=== PATIENT | female | born 1960 | race African-American/Black ===

== ENCOUNTER 2016-01-29 10:49 | Inpatient (IN) | payer OTHER ==
[2016-01-29 11:13] VITALS: BMI 28.3
--- NOTE | 2016-01-29 12:00 | PDOC ---
History of Present Illness - General Chief Complaint: Weakness Stated Complaint: WEAKNESS Time Seen by Provider: 01/29/16 11:19 History Source: Friend - History of Present Illness Initial Comments: 01/29/16 13:06 Chief complaint: Weakness Patient is a 55-year-old female with a history of stage IV breast cancer to the bones who was brought in by her friend who states she lives with family that she has difficulty walking and she is very weak. Shouldn't is sleeping on the stretcher, wakes up and then goes back to sleep. Cannot get full story from patient. Patient's friend states that patient was told by Dr. Rg come to the ER but they're not sure why. Patient's right side of the face appears more droopy than the left, when asked, friend stated he had never noticed that before , not sure Unable to do full review of systems, patient really not answering questions will open eyes and mumble a few words and go back to sleep. Patient did say that she was at [facility] when asked GENERAL: The patient is very sleepy, awakes with verbal HEAD: Normal with no signs of trauma. EYES: Pupils equal, round and reactive to light, sclera anicteric, conjunctiva clear. ENT: pharynx: no erythema, no exudate, uvula midline NECK: supple CHEST: clear, nontender, rr ABD: soft, nontender EXTREMITIES: No sravanthi-paresis, no edema. NEUROLOGICAL: Sleepy: Follow some instructions, right side of the face seems droopy as compared to the left. Patient does not follow all instructions, but she does lift her arms symmetrically and her legs are weak but she can follow the instructions for moving them, and to plantar flexion and dorsi flexion. SKIN: Warm, Dry Past History - Past Medical History Allergies/Adverse Reactions: Allergies Allergy/AdvReac Type Severity Reaction Status Date / Time No Known Allergies Allergy Verified 01/29/16 11:13 Home Medications: Ambulatory Orders Pregabalin [Lyrica] 50 mg PO BID 12/12/15 Anemia: Yes (SICKLE CELL TRAIT) Asthma: Yes Cancer: Yes (BONE,breast ca, S/P CHEMO TX, MEDIPORT LEFT CHEST) Cardiac Disorders: No CVA: No COPD: No CHF: No Dementia: No Diabetes: No GI Disorders: No Disorders: No HTN: No Hypercholesterolemia: No Kidney Stones: No Liver Disease: Yes (HEP B) Suicide Attempt (Hx): No Seizures: No Thyroid Disease: No - Surgical History Abdominal Surgery: No Appendectomy: No Cardiac Surgery: No Cholecystectomy: No Lung Surgery: No Neurologic Surgery: No Orthopedic Surgery: Yes (BACK 2014 AT [facility]) - Reproductive History PID: No - Immunization History Immunization Up to Date: Yes - Psycho/Social/Smoking Cessation Hx Anxiety: No Suicidal Ideation: No Smoking Status: No Smoking History: Current every day smoker Have you smoked in the past 12 months: No Number of Cigarettes Smoked Daily: 20 Cigars Per Day: 0 Information on smoking cessation initiated: No 'Breaking Loose' booklet given: 01/01/16 Hx Alcohol Use: No Drug/Substance Use Hx: No Substance Use Type: Alcohol, Heroin, Marijuana Hx Substance Use Treatment: Yes *Physical Exam - Vital Signs Last Vital Signs Temp Pulse Resp BP Pulse Ox 98.1 F 109 H 18 128/78 98 01/29/16 11:08 01/29/16 11:08 01/29/16 11:08 01/29/16 11:08 01/29/16 11:08 Heart Score/ECG Review - ECG Intrepretation Rhythm: Regular Rhythm Comment:: 01/29/16 18:16 Normal sinus rhythm at 88, otherwise normal EKG ED Treatment Course - LABORATORY CBC & Chemistry Diagram: 01/29/16 12:51 01/29/16 12:51 Medical Decision Making - Medical Decision Making 01/29/16 pt with stage 4 breast ca, hx of substance abuse with lethargy and weakness. pt exam as noted in chart. pt will get head ct, labs, utox, alcohol, chest xray, ekg, fluids and be reevaluated. pt has no fever. pt more alert, labs stable awaiting ua, toxicology, head ct shows ?mets, chest xray shows greater opacity. pt will be admitted. Discussed with Faith erickson access *DC/Admit/Observation/Transfer Diagnosis at time of Disposition: Breast cancer metastasized to bone Qualifiers: Laterality: right Qualified Code(s): C50.911 - Malignant neoplasm of unspecified site of right female breast Change in mental status Qualifiers: Altered mental status type: unspecified Qualified Code(s): R41.82 - Altered mental status, unspecified - Discharge Dispostion Admit: Yes
[2016-01-29 13:03] LABS: BASOPHIL 0.5 % (0-2.0); EOSINOPHIL 1.2 % (0-4.5); MCH 24.9 pg (25.7-33.7); MCHC 31.9 g/dl (32.0-36.0); MEAN CELL VOLUME 78.1 fl (80-96); MEAN PLT VOLUME 9.7 fl (7.5-11.1); PLATELET COUNT 258 K/MM3 (134-434); RDW 19.2 % (11.6-15.6); WHITE BLOOD COUNT 5.3 K/mm3 (4.0-10.0)
[2016-01-29 13:30] LABS: ALBUMIN 2.9 g/dl (3.4-5.0); ALK PHOS 112 U/L (45-117); ANION GAP 6 (8-16); BILIRUBIN,TOTAL 0.7 mg/dL (0.2-1.0); CALCIUM 8.4 mg/dL (8.5-10.1); CO2 30 mmol/L (21-32); CREATININE 0.6 mg/dL (0.55-1.02); GLUCOSE,RANDOM 92 mg/dL (74-106); SGOT/AST 55 U/L (15-37); SGPT/ALT 13 U/L (12-78); TOT PROT 6.4 g/dl (6.4-8.2)
[2016-01-29] MEDS ORDERED: SODIUM CHLORIDE 1,000 ML IV STA (15:58)
[2016-01-29 17:24] LABS: URINE APPEARANCE CLEAR; URINE BILIRUBIN NEGATIVE (NEGATIVE); URINE BLOOD NEGATIVE (NEGATIVE); URINE COLOR DKYELLOW; URINE GLUCOSE (UA) NEGATIVE (NEGATIVE); URINE KETONE NEGATIVE (NEGATIVE); URINE LEUK ESTERASE NEGATIVE (NEGATIVE); URINE NITRITE NEGATIVE (NEGATIVE); URINE PROTEIN NEGATIVE (NEGATIVE); URINE UROBILINOGEN 2.0 E.U/dl E.U./dl (0.2-1.0)
[2016-01-29 18:06] LABS: URINE MARIJUANA THC POSITIVE ng/ml (CUTOFF=50)
--- NOTE | 2016-01-29 19:29 | PN ---
Teaching Attending Note Name of Resident: Angela Cordero ATTENDING PHYSICIAN STATEMENT I saw and evaluated the patient. I reviewed the resident's note and discussed the case with the resident. I agree with the resident's findings and plan as documented. SUBJECTIVE: OBJECTIVE: Physical: VS: Vital Signs Period Temp Pulse Resp BP Sys/Maciel Pulse Ox Last 24 Hr 98.1 F 84-109 18-18 113-128/69-78 98-98 GEN: HEENT: CARD: RESP: ABD: EXT: CBCD WBC 5.3 K/mm3 (4.0-10.0) 01/29/16 12:51 RBC 4.96 M/mm3 (3.60-5.2) 01/29/16 12:51 Hgb 12.4 GM/dL (10.7-15.3) 01/29/16 12:51 Hct 38.7 % (32.4-45.2) 01/29/16 12:51 MCV 78.1 fl (80-96) L 01/29/16 12:51 MCHC 31.9 g/dl (32.0-36.0) L 01/29/16 12:51 RDW 19.2 % (11.6-15.6) H 01/29/16 12:51 Plt Count 258 K/MM3 (134-434) 01/29/16 12:51 MPV 9.7 fl (7.5-11.1) 01/29/16 12:51 CMP Sodium 135 mmol/L (136-145) L 01/29/16 12:51 Potassium 3.7 mmol/L (3.5-5.1) 01/29/16 12:51 Chloride 99 mmol/L (98-107) 01/29/16 12:51 Carbon Dioxide 30 mmol/L (21-32) 01/29/16 12:51 Anion Gap 6 (8-16) L 01/29/16 12:51 BUN 8 mg/dL (7-18) D 01/29/16 12:51 Creatinine 0.6 mg/dL (0.55-1.02) 01/29/16 12:51 Creat Clearance w eGFR > 60 (>60) 01/29/16 12:51 Random Glucose 92 mg/dL (74-106) 01/29/16 12:51 Calcium 8.4 mg/dL (8.5-10.1) L 01/29/16 12:51 Total Bilirubin 0.7 mg/dL (0.2-1.0) 01/29/16 12:51 AST 55 U/L (15-37) H D 01/29/16 12:51 ALT 13 U/L (12-78) 01/29/16 12:51 Alkaline Phosphatase 112 U/L (45-117) 01/29/16 12:51 Total Protein 6.4 g/dl (6.4-8.2) 01/29/16 12:51 Albumin 2.9 g/dl (3.4-5.0) L 01/29/16 12:51 ASSESSMENT AND PLAN:
--- NOTE | 2016-01-29 19:36 | PN ---
<Guilherme Nevarezjonny - Last Filed: 01/29/16 19:35> Teaching Attending Note Name of Resident: Angela Cordero ATTENDING PHYSICIAN STATEMENT I saw and evaluated the patient. I reviewed the resident's note and discussed the case with the resident. I agree with the resident's findings and plan as documented. SUBJECTIVE: OBJECTIVE: Physical: VS: ASSESSMENT AND PLAN: <Shereen Mari - Last Filed: 01/29/16 21:09> Teaching Attending Note ATTENDING PHYSICIAN STATEMENT I saw and evaluated the patient. I reviewed the resident's note and discussed the case with the resident. I agree with the resident's findings and plan as documented. SUBJECTIVE: Patient is a 55 year old female with past significant sickle cell trait, asthma , hep B, metastatic stage 4 breast cancer on chemo and polysubstance abuse presents with weakness. Could not obtain full history from the patient. OBJECTIVE: Physical: VS: Last Vital Signs Temp Pulse Resp BP Pulse Ox 97.2 F L 78 21 129/63 98 01/29/16 19:31 01/29/16 19:31 01/29/16 19:31 01/29/16 19:31 01/29/16 18:38 GEN: A&O x2, cachectic, resting in bed, able to speak full sentences HEENT: NCAT pupils pinpoint, throat clear without erythema or exudates CARD: RRR, S1S2 RESP: CTAB ABD: BWS x4, non tender EXT: neg CCE LABS: CBCD WBC 5.3 K/mm3 (4.0-10.0) 01/29/16 12:51 RBC 4.96 M/mm3 (3.60-5.2) 01/29/16 12:51 Hgb 12.4 GM/dL (10.7-15.3) 01/29/16 12:51 Hct 38.7 % (32.4-45.2) 01/29/16 12:51 MCV 78.1 fl (80-96) L 01/29/16 12:51 MCHC 31.9 g/dl (32.0-36.0) L 01/29/16 12:51 RDW 19.2 % (11.6-15.6) H 01/29/16 12:51 Plt Count 258 K/MM3 (134-434) 01/29/16 12:51 MPV 9.7 fl (7.5-11.1) 01/29/16 12:51 CMP Sodium 135 mmol/L (136-145) L 01/29/16 12:51 Potassium 3.7 mmol/L (3.5-5.1) 01/29/16 12:51 Chloride 99 mmol/L (98-107) 01/29/16 12:51 Carbon Dioxide 30 mmol/L (21-32) 01/29/16 12:51 Anion Gap 6 (8-16) L 01/29/16 12:51 BUN 8 mg/dL (7-18) D 01/29/16 12:51 Creatinine 0.6 mg/dL (0.55-1.02) 01/29/16 12:51 Creat Clearance w eGFR > 60 (>60) 01/29/16 12:51 Calcium 8.4 mg/dL (8.5-10.1) L 01/29/16 12:51 Total Bilirubin 0.7 mg/dL (0.2-1.0) 01/29/16 12:51 AST 55 U/L (15-37) H D 01/29/16 12:51 ALT 13 U/L (12-78) 01/29/16 12:51 Alkaline Phosphatase 112 U/L (45-117) 01/29/16 12:51 Total Protein 6.4 g/dl (6.4-8.2) 01/29/16 12:51 Albumin 2.9 g/dl (3.4-5.0) L 01/29/16 12:[address]: IMPRESSION: New areas of subcortical decreased density without significant mass effect. Further imaging with contrast enhanced CT or MR is suggested. CRX: IMPRESSION: Interval increase opacity in the left the upper lobe, suprahilar region for which correlation with CT scan of the chest is needed for better comparison to prior CT scan of the chest dated 12/13/2015 ASSESSMENT AND PLAN: Patient is a 55 year old female with past significant sickle cell trait, asthma , hep B, metastatic stage 4 breast cancer on chemo and polysubstance abuse presents with weakness. Head CT found to have possible metastasis to the brain. 1. Weakness - Ddx most likely due to brain metastasis/substance abuse - Possible alcohol intoxication - MRI brain with contrast - No mass effect on CT - Hold off steroids at this time - Check alcohol level - Neuro consult - Neuro surg consult post MRI - Questionable CT chest for left upper lobe subrahilar region when able - PT consult - Check ammonia level 2. Stage 4 breast ca with metastasis - Oncology consult 3. Polysubstance abuse - Detox consult - Librium for possible alcohol withdrawal - CWIA Admit to Med Surg. Documentation prepared by Shereen Mari, acting as senior medical director for Steff Nevarez D.O.
--- NOTE | 2016-01-29 20:28 | HP ---
CHIEF COMPLAINT: Weakness and pain in the legs. PCP: HISTORY OF PRESENT ILLNESS: 55-year-old female with a significant past medical history of stage 4 breast cancer with metastases to bone, s/p right breast mastectomy, polysubstance abuse (opiates, benzodiazepines, alcohol), hepatitis B, sickle cell trait, asthma. She presents to the emergency department with her friend who reports that recently she has been very weak. The Patient is falling asleep during the conversation. She is complaining of pain in lower extremities and numbness in left LE that started a week ago. She denies chest pain, SOB, loss of sensation, dysuria, urgency, frequency, vision changes, difficulty swallowing. The patient was here in the hospital last month and was found to be altered and noted to be intoxicated with narcotics. History is taken from medical records and partially from the patient. ER course was notable for: (1)CT head (2)EKG NSR (3)Chest x ray PAST MEDICAL HISTORY: stage 4 breast cancer with metastases to bone, s/p right breast mastectomy, polysubstance abuse (opiates, alcohol), hepatitis B, sickle cell trait, asthma PAST SURGICAL HISTORY: Orthopedic surgery 2014 Social History: Smoking: Yes 6-10 cigarettes/day Alcohol: N/A Drugs: Polysubstance abuse Family History: Mother of Breast CA , Father CVA Allergies No Known Allergies Allergy (Verified 01/29/16 11:13) pt is poor historian HOME MEDICATIONS: Medication Instructions Recorded Pregabalin [Lyrica] 50 mg PO BID 12/12/15 REVIEW OF SYSTEMS;limited, pt is a poor historian and drowsy CONSTITUTIONAL: generalized weakness Absent: fever, chills, diaphoresis,, malaise, loss of appetite, weight change HEENT: Absent: rhinorrhea, nasal congestion, throat pain, throat swelling, difficulty swallowing, ear pain, eye pain, visual changes CARDIOVASCULAR: Absent: chest pain, syncope, palpitations, irregular heart rate, lightheadedness , peripheral edema RESPIRATORY: Absent: cough, shortness of breath, dyspnea with exertion, orthopnea, wheezing, stridor, hemoptysis GASTROINTESTINAL: Absent: abdominal pain, abdominal distension, nausea, vomiting, diarrhea, constipation, melena, hematochezia GENITOURINARY: Absent: dysuria, frequency, urgency, hesitancy, hematuria, flank pain, genital pain MUSCULOSKELETAL: Absent: myalgia, arthralgia, joint swelling, back pain, neck pain SKIN: Absent: rash, itching, pallor HEMATOLOGIC/IMMUNOLOGIC: Absent: easy bleeding, easy bruising, lymphadenopathy, frequent infections ENDOCRINE: Absent: unexplained weight gain, unexplained weight loss, heat intolerance, cold intolerance NEUROLOGIC: numbness in left LE Absent: headache, focal weakness or paresthesias, dizziness, unsteady gait, seizure, bladder or bowel incontinence PHYSICAL EXAMINATION Vital Signs - 24 hr 01/29/16 01/29/16 18:38 19:31 Temperature 97.2 F L Pulse Rate 78 Pulse Rate [ 84 Apical] Respiratory 18 21 Rate Blood Pressure 129/63 Blood Pressure 113/69 [Left Arm] O2 Sat by Pulse 98 Oximetry (%) GENERAL: Awake, altered mental status HEAD: Normal with no signs of trauma. EYES: Pupils equal, round and reactive to light, extraocular movements intact, sclera anicteric, conjunctiva clear. No lid lag. EARS, NOSE, THROAT: Ears normal, nares patent, oropharynx clear without exudates. Moist mucous membranes. NECK: Normal range of motion, supple without lymphadenopathy, JVD, or masses. LUNGS: Breath sounds equal, clear to auscultation bilaterally. No wheezes, and no crackles. No accessory muscle use. HEART: Regular rate and rhythm, normal S1 and S2 without murmur, rub or gallop. ABDOMEN: Soft, nontender, not distended, normoactive bowel sounds, no guarding, no rebound, no masses. No hepatomegaly or splenomegaly. MUSCULOSKELETAL: Normal range of motion at all joints. No bony deformities or tenderness. No CVA tenderness. UPPER EXTREMITIES: 2+ pulses, warm, well-perfused. No cyanosis. No clubbing. Cap refill <2 seconds. No peripheral edema. LOWER EXTREMITIES: 2+ pulses, warm, well-perfused. No calf tenderness. No peripheral edema. NEUROLOGICAL: Weakness on left side of the face, decreased sensation in LLE, slurred speech, generalized weakness in all 4 extremities. Gait not observed. PSYCHIATRIC: Not cooperative. Drowsy. Good eye contact. Appropriate mood and affect. SKIN: Warm, dry, normal turgor, no rashes or lesions noted. Chest X ray: Increased opacity in left upper lobe, suprahilar region, CT correlation needed. CT Head: New areas of subcortical decreased density without significant mass effect. Further imaging with contrast enhanced CT or MR is suggested. ASSESSMENT/PLAN: 55-year-old female with a significant past medical history of stage 4 breast cancer with metastases to bone, s/p right breast mastectomy, polysubstance abuse (opiates, alcohol), hepatitis B, sickle cell trait, asthma. She is admitted for weakness, possible mets to the brain. Generalized weakness: -CT head is negative for mass effect f/u MRI with contrast -Urine tox. positive for opiates, benzo, marijuana, -Detox consultation -f/u Neurology consultation, Neurosurgery consultation post MRI -hold off steroids at this time - Check ammonia level Polysubstance abuse: -U tox positive -f/u alcohol tox -Pt has altered mental status Stage 4 breast cancer with mets to bone: -unknown disease progression -resume pain meds in AM Asthma: -not on medications DVT prophylaxis: -SCDs boots F/E/N: No/No changes/Regular diet Disposition: The pt is admitted to med surg Problem List - Problem (1) Change in mental status Code(s): R41.82 - ALTERED MENTAL STATUS, UNSPECIFIED Qualifiers: Altered mental status type: unspecified Qualified Code(s): R41.82 - Altered mental status, unspecified (2) Breast cancer metastasized to bone Code(s): C50.919 - MALIGNANT NEOPLASM OF UNSP SITE OF UNSPECIFIED FEMALE BREAST C79.51 - SECONDARY MALIGNANT NEOPLASM OF BONE Qualifiers: Laterality: right Qualified Code(s): C50.911 - Malignant neoplasm of unspecified site of right female breast; C79.51 - Secondary malignant neoplasm of bone (3) Cocaine dependence Code(s): F14.20 - COCAINE DEPENDENCE, UNCOMPLICATED (4) Drug-induced mood disorder Code(s): F19.94 - OTH PSYCHOACTIVE SUBSTANCE USE, UNSP W MOOD DISORDER Visit type - Emergency Visit Emergency Visit: Yes ED Registration Date: 01/29/16 Care time: The patient presented to the Emergency Department on the above date and was hospitalized for further evaluation of their emergent condition. - New Patient This patient is new to me today: No - Critical Care Critical Care patient: No
[2016-01-30 07:31] LABS: MCH 24.7 pg (25.7-33.7); MCHC 32.2 g/dl (32.0-36.0); MEAN CELL VOLUME 76.6 fl (80-96); MEAN PLT VOLUME 9.8 fl (7.5-11.1); PLATELET COUNT 256 K/MM3 (134-434); RDW 18.9 % (11.6-15.6); WHITE BLOOD COUNT 4.3 K/mm3 (4.0-10.0)
[2016-01-30 08:07] LABS: CREATININE 0.5 mg/dL (0.55-1.02)
[2016-01-30] MEDS: oxyCODONE HCL 5 MG TABLET PO PRN (08:41)
--- NOTE | 2016-01-30 09:26 | PN ---
Physical Exam: SUBJECTIVE: Patient seen and examined. She complains of pain everywhere. OBJECTIVE: Vital Signs Period Temp Pulse Resp BP Sys/Maciel Pulse Ox Last 24 Hr 97.8 F-98.4 F 83-96 16-18 100-109/50-68 99-99 GENERAL: The patient is awake, alert, and confused, in no acute distress. HEAD: Normal with no signs of trauma. NECK: Full range of motion, supple. LUNGS: Breath sounds equal, clear to auscultation bilaterally, no wheezes, no crackles, no accessory muscle use. HEART: Regular rate and rhythm, S1, S2 without murmur, rub or gallop. ABDOMEN: Soft, nontender, nondistended, normoactive bowel sounds, no guarding, no rebound, no hepatosplenomegaly, no masses. EXTREMITIES: 2+ pulses, warm, well-perfused, no edema. Laboratory Results - last 24 hr 01/29/16 01/30/16 01/30/16 21:45 06:30 06:30 WBC 4.3 RBC 4.59 Hgb 11.3 Hct 35.2 MCV 76.6 L MCHC 32.2 RDW 18.9 H Plt Count 256 MPV 9.8 Sodium 136 Potassium 3.6 Chloride 100 Carbon Dioxide 28 Anion Gap 8 BUN 9 Creatinine 0.5 L Random Glucose 87 Calcium 8.0 L Ammonia Alcohol, Quantitative < 5.0 01/30/16 06:30 WBC RBC Hgb Hct MCV MCHC RDW Plt Count MPV Sodium Potassium Chloride Carbon Dioxide Anion Gap BUN Creatinine Random Glucose Calcium Ammonia 22.93 Alcohol, Quantitative Active Medications Generic Name Dose Route Start Last Admin Trade Name Freq PRN Reason Stop Dose Admin Oxycodone HCl 10 mg 01/30/16 08:28 01/30/16 08:41 Roxicodone - PO 10 mg Q4H PRN Administration PAIN Pregabalin 50 mg 01/30/16 10:00 Lyrica - PO 01/31/16 09:59 BID MARGARITA ASSESSMENT/PLAN: This is a 55-year-old woman with a history of stage 4 breast cancer with bone metastases, right mastectomy, opiate and alcohol abuse, hepatitis B, sickle cell trait and asthma who presented with weakness and was found to have possible brain metastases on head CT. 1. Generalized weakness - Head CT shows multiple hypodense areas without mass effect - MRI of brain ordered 2. Stage 4 breast cancer with bone and possible brain metastases - Continue Lyrica, oxycodone as needed - Morphine as needed for severe pain - MRI of brain to evaluate for metastases - Will hold steroids pending MRI as there is no mass effect seen on CT - Palliative care consult 3. Asthma - Stable 4. Polysubstance abuse Visit type - Emergency Visit Emergency Visit: Yes ED Registration Date: 01/29/16 Care time: The patient presented to the Emergency Department on the above date and was hospitalized for further evaluation of their emergent condition. - New Patient This patient is new to me today: Yes Date on this admission: 01/30/16 - Critical Care Critical Care patient: No - Discharge Referral Referred to [facility] Med P.C.: No
[2016-01-30] MEDS: morphine CARPU-JECT 2 MG/1 ML DISP.SYRIN IVPUSH PRN (09:49)
[2016-01-30] MEDS: PREGABALIN 25 MG CAPSULE PO SCH ×2 (10:36→21:51)
--- NOTE | 2016-01-30 10:58 | CONSULT ---
Consult Consult Specialty:: Neurology Reason for Consultation:: Brain metastasis - History of Present Illness History of Present Illness: 55-year-old woman with past medical history of stage 4 breast cancer with metastases to bone, s/p right breast mastectomy, polysubstance abuse (opiates, benzodiazepines, alcohol), hepatitis B, sickle cell trait, asthma, brought in by friend yesterday for "pain all over her body" and left sided numbness starting one week ago. As per records, patient was here in the hospital last month and was found to be altered and noted to be intoxicated with narcotics. History is taken from medical records and partially from the patient. CT head was completed which shows new areas of subcortical decreased density without significant mass effect. Neurology called to evaluate possible brain metastasis. - History Source Limitations to Obtaining History: No Limitations - Past Medical History ...LMP: 09/20/11 - Smoking History Smoking history: Current every day smoker Have you smoked in the past 12 months: No Aproximately how many cigarettes per day: 20 Home Medications - Allergies Allergies/Adverse Reactions: Allergies Allergy/AdvReac Type Severity Reaction Status Date / Time No Known Allergies Allergy Verified 01/29/16 11:13 - Home Medications Home Medications: Ambulatory Orders Pregabalin [Lyrica] 50 mg PO BID 12/12/15 Family Disease History - Family Disease History Family Disease History: Heart Disease: Father, CA: Mother (breast ), Other: Sister (addiction, HIV) Review of Systems - Review of Systems Constitutional: reports: No Symptoms Eyes: reports: No Symptoms HENT: reports: No Symptoms Neck: reports: No Symptoms Cardiovascular: reports: No Symptoms Respiratory: reports: No Symptoms Gastrointestinal: reports: No Symptoms Neurological: reports: Parasthesia Physical Exam Vital Signs: Vital Signs Temperature 98 F 01/30/16 08:13 Pulse Rate 96 H 01/30/16 08:13 Respiratory Rate 18 01/30/16 08:13 Blood Pressure 101/50 01/30/16 08:13 O2 Sat by Pulse Oximetry (%) 99 01/29/16 22:00 Constitutional: Yes: Well Nourished Eyes: Yes: WNL HENT: Yes: WNL Cardiovascular: Yes: S1, S2 Respiratory: Yes: Regular Neurological: Yes: Other (Mental status: knows name, month, age, tangential at times CNII-XII Mild left facial numbness, EOMI, visual galdamez full, tongue midline Motor 5/5 throughout no drift Sensory decrease to light touch left face , arm, leg) Labs: CBC, BMP 01/30/16 06:30 01/30/16 06:30 Imaging - Results Cat Scan: Other (CT head new areas of subcortical decreased density without significant mass effect) Assessment/Plan 55-year-old woman with past medical history of stage 4 breast cancer with metastases to bone, s/p right breast mastectomy, polysubstance abuse (opiates, benzodiazepines, alcohol), hepatitis B, sickle cell trait, asthma, brought in by friend yesterday for "pain all over her body" and left sided numbness starting one week ago. As per records, patient was here in the hospital last month and was found to be altered and noted to be intoxicated with narcotics. CT head was completed which shows new areas of subcortical decreased density without significant mass effect. Neurology called to evaluate possible brain metastasis. Impression Possible brain metastasis MRI brain with and without contrast Can hold off on steroids until further delineation with MRI, given mild sensory symptoms and no midline shift Depending on extent of mets, will require neurosurgery and/or radiation oncology Continue supportive care
[2016-01-30] MEDS ORDERED: HALOPERIDOL LACTATE 5 MG/ML IM ONE (11:04)
--- NOTE | 2016-01-30 12:41 | EKG ---
Test Reason : Blood Pressure : / mmHG Vent. Rate : 088 BPM Atrial Rate : 088 BPM P-R Int : 150 ms QRS Dur : 084 ms QT Int : 390 ms P-R-T Axes : 074 023 051 degrees QTc Int : 471 ms NORMAL SINUS RHYTHM LOW VOLTAGE QRS BORDERLINE ECG WHEN COMPARED WITH ECG OF 04-JAN-2016 14:59, NO SIGNIFICANT CHANGE WAS FOUND Confirmed by NUBIA COULTER MD ([id number]) on 01/30/2016 12:41:18 PM Referred By: Overread By: NUBIA COULTER MD
[2016-01-30] MEDS ORDERED: METHADONE HCL 10 MG TABLET (FOR DETOX USE ONLY) PO ONE (14:11)
--- NOTE | 2016-01-30 14:18 | CONSULT ---
Consult Detox [facility] Reason for Current Admission/Consult: HEROIN DETOX Referred by:: CAROLINE ALEJO RES - History History of Present Illness: PT. KNOWN TO ME FROM PREVIOUS ADMISSIONS & OTP.SHE'S STILL USING HEROIN & C/O WITHDRAWAL SX. - History Source History Provided By: Patient, Medical Record Limitations to Obtaining History: No Limitations - Alcohol/Substance Use Hx Alcohol Use: No - Current Drug/Alcohol Use Heroin Route: Inhalation Frequency: Daily Amount used: 5 BAGS Age of first use: 27 Date of Last Use: 01/28/16 - Past Medical History ...LMP: 09/20/11 ...: No - Significant Medical Findings: Laboratory Last Values WBC 4.3 K/mm3 (4.0-10.0) 01/30/16 06:30 RBC 4.59 M/mm3 (3.60-5.2) 01/30/16 06:30 Hgb 11.3 GM/dL (10.7-15.3) 01/30/16 06:30 Hct 35.2 % (32.4-45.2) 01/30/16 06:30 MCV 76.6 fl (80-96) L 01/30/16 06:30 MCHC 32.2 g/dl (32.0-36.0) 01/30/16 06:30 RDW 18.9 % (11.6-15.6) H 01/30/16 06:30 Plt Count 256 K/MM3 (134-434) 01/30/16 06:30 MPV 9.8 fl (7.5-11.1) 01/30/16 06:30 Neutrophils % 79.0 % (42.8-82.8) 01/29/16 12:51 Lymphocytes % 8.2 % (8-40) D 01/29/16 12:51 Monocytes % 11.1 % (3.8-10.2) H 01/29/16 12:51 Eosinophils % 1.2 % (0-4.5) D 01/29/16 12:51 Basophils % 0.5 % (0-2.0) 01/29/16 12:51 Sodium 136 mmol/L (136-145) 01/30/16 06:30 Potassium 3.6 mmol/L (3.5-5.1) 01/30/16 06:30 Chloride 100 mmol/L (98-107) 01/30/16 06:30 Carbon Dioxide 28 mmol/L (21-32) 01/30/16 06:30 Anion Gap 8 (8-16) 01/30/16 06:30 BUN 9 mg/dL (7-18) 01/30/16 06:30 Creatinine 0.5 mg/dL (0.55-1.02) L 01/30/16 06:30 Creat Clearance w eGFR > 60 (>60) 01/29/16 12:51 Random Glucose 87 mg/dL (74-106) 01/30/16 06:30 Calcium 8.0 mg/dL (8.5-10.1) L 01/30/16 06:30 Total Bilirubin 0.7 mg/dL (0.2-1.0) 01/29/16 12:51 AST 55 U/L (15-37) H D 01/29/16 12:51 ALT 13 U/L (12-78) 01/29/16 12:51 Alkaline Phosphatase 112 U/L (45-117) 01/29/16 12:51 Ammonia 22.93 umol/L (11-32) 01/30/16 06:30 Total Protein 6.4 g/dl (6.4-8.2) 01/29/16 12:51 Albumin 2.9 g/dl (3.4-5.0) L 01/29/16 12:51 Urine Color Dkyellow 01/29/16 17:00 Urine Appearance Clear 01/29/16 17:00 Urine pH 5.0 (5.0-8.0) 01/29/16 17:00 Ur Specific Dowling 1.016 (1.001-1.035) 01/29/16 17:00 Urine Protein Negative (NEGATIVE) 01/29/16 17:00 Urine Glucose (UA) Negative (NEGATIVE) 01/29/16 17:00 Urine Ketones Negative (NEGATIVE) 01/29/16 17:00 Urine Blood Negative (NEGATIVE) 01/29/16 17:00 Urine Nitrite Negative (NEGATIVE) 01/29/16 17:00 Urine Bilirubin Negative (NEGATIVE) 01/29/16 17:00 Urine Urobilinogen 2.0 e.u/dl E.U./dl (0.2-1.0) H 01/29/16 17:00 Ur Leukocyte Esterase Negative (NEGATIVE) 01/29/16 17:00 Opiates Screen Positive ng/ml (GQTKBY=778) 01/29/16 17:00 Methadone Screen Negative ng/ml (AWKHGD=178) 01/29/16 17:00 Barbiturate Screen Negative ng/ml (ZAMXAU=395) 01/29/16 17:00 Phencyclidine Screen Negative ng/ml (CUTOFF=25) 01/29/16 17:00 Ur Amphetamines Screen Positive ng/ml (FEUGGX=552) 01/29/16 17:00 MDMA (Ecstasy) Screen Negative ng/ml (ZGFHME=141) 01/29/16 17:00 Benzodiazepines Screen Positive ng/ml (IXQSPN=712) 01/29/16 17:00 Cocaine Screen Negative ng/ml (ZJXKZW=466) 01/29/16 17:00 U Marijuana (THC) Screen Positive ng/ml (CUTOFF=50) 01/29/16 17:00 Alcohol, Quantitative < 5.0 mg/dl (0-5) 01/29/16 21:45 LABS NOTED COWS - Scale Resting Pulse: 1= [place] 81-100 Sweatin=Flushed/Facial Moisture Restless Observation: 1= Difficult to Sit Still Pupil Size: 1= Pupils >than Normal Bone or Joint Aches: 2= Severe Diffuse Aches Runny Nose/ Eye Tearin= Runny Nose/Eyes GI Upset > 30mins: 2= Nausea/Diarrhea Tremor Observation: 2= Slight Tremor Visible Yawning Observation: 1= 1-2x During Session Anxiety or Irritability: 2=Irritable/Anxious Goose Flesh Skin: 0=Smooth Skin COWS Score: 16 Assessment Plan - Diagnosis (1) Opioid dependence with withdrawal Status: Acute - Medication Detox Regimen/Protocol: Methadone
[2016-01-30] MEDS ORDERED: METHADONE HCL 10 MG TABLET PO ONE ×2 (15:00→23:00)
[2016-01-31] MEDS: diazePAM 5 MG TABLET PO PRN (04:24)
[2016-01-31] MEDS ORDERED: LORAZEPAM CARPU-JECT 2 MG/ML DISP.SYRIN IVPUSH ONE ×2 (05:36→08:07)
--- NOTE | 2016-01-31 07:41 | PN ---
Physical Exam: SUBJECTIVE: Patient seen and examined. She continues to complain of pain all over. OBJECTIVE: Vital Signs Period Temp Pulse Resp BP Sys/Maciel Pulse Ox Last 24 Hr 98 F-98.2 F 70-106 18-20 98-142/50-81 97 GENERAL: The patient is awake, alert, and confused, in no acute distress. HEAD: Normal with no signs of trauma. NECK: Full range of motion, supple. LUNGS: Breath sounds equal, clear to auscultation bilaterally, no wheezes, no crackles, no accessory muscle use. HEART: Regular rate and rhythm, S1, S2 without murmur, rub or gallop. ABDOMEN: Soft, nontender, nondistended, normoactive bowel sounds, no guarding, no rebound, no hepatosplenomegaly, no masses. EXTREMITIES: 2+ pulses, warm, well-perfused, no edema. Laboratory Results - last 24 hr 01/30/16 01/30/16 06:30 06:30 Sodium 136 Potassium 3.6 Chloride 100 Carbon Dioxide 28 Anion Gap 8 BUN 9 Creatinine 0.5 L Random Glucose 87 Calcium 8.0 L Ammonia 22.93 Active Medications Generic Name Dose Route Start Last Admin Trade Name Freq PRN Reason Stop Dose Admin Diazepam 10 mg 01/30/16 14:11 01/31/16 04:24 Valium - PO 02/02/16 14:10 10 mg Q4H PRN Administration WITHDRAWAL(CONT SUBST) Methadone HCl 20 mg 01/31/16 10:00 Dolophine - PO 01/31/16 10:01 ONCE ONE Methadone HCl 10 mg 02/03/16 10:00 Dolophine - PO 02/03/16 10:01 ONCE ONE Methadone HCl 15 mg 02/01/16 10:00 Dolophine - PO 02/01/16 23:59 ONCE ONE Methadone HCl 15 mg 02/02/16 10:00 Dolophine - PO 02/02/16 23:59 ONCE ONE Methadone HCl 5 mg 02/04/16 06:00 Dolophine - PO 02/04/16 06:01 ONCE@0600 ONE Morphine Sulfate 1 mg 01/30/16 09:27 01/30/16 09:49 Morphine Injection - IVPUSH 1 mg Q3H PRN Administration SEVERE PAIN Oxycodone HCl 10 mg 01/30/16 08:28 01/30/16 08:41 Roxicodone - PO 10 mg Q4H PRN Administration PAIN Pregabalin 50 mg 01/30/16 10:00 01/30/16 21:51 Lyrica - PO 01/31/16 09:59 50 mg BID MARGARITA Administration ASSESSMENT/PLAN: This is a 55-year-old woman with a history of stage 4 breast cancer with bone metastases, right mastectomy, opiate and alcohol abuse, hepatitis B, sickle cell trait and asthma who presented with weakness and was found to have possible brain metastases on head CT. 1. Generalized weakness - Head CT shows multiple hypodense areas without mass effect - MRI of brain ordered 2. Stage 4 breast cancer with bone and possible brain metastases - Continue Lyrica - MRI of brain to evaluate for metastases - Will hold steroids pending MRI as there is no mass effect seen on CT - Palliative care consult 3. Asthma - Stable 4. Opioid dependence - Started on Methadone taper Visit type - Emergency Visit Emergency Visit: Yes ED Registration Date: 01/29/16 Care time: The patient presented to the Emergency Department on the above date and was hospitalized for further evaluation of their emergent condition. - New Patient This patient is new to me today: No - Critical Care Critical Care patient: No - Discharge Referral Referred to [facility] Med P.C.: No
[2016-01-31] MEDS ORDERED: METHADONE HCL 10 MG TABLET (FOR DETOX USE ONLY) PO ONE (10:00)
[2016-01-31] MEDS ORDERED: METHADONE HCL 10 MG TABLET PO ONE (10:00)
[2016-01-31] MEDS ORDERED: HALOPERIDOL LACTATE 5 MG/ML IM ONE (10:20)
[2016-01-31] MEDS: oxyCODONE HCL 5 MG TABLET PO PRN (11:59)
--- NOTE | 2016-01-31 12:40 | PN ---
Teaching Attending Note ATTENDING PHYSICIAN STATEMENT I saw and evaluated the patient. I reviewed the resident's note and discussed the case with the resident. I agree with the resident's findings and plan as documented. SUBJECTIVE: OBJECTIVE: ASSESSMENT AND PLAN:
[2016-02-01] MEDS: diazePAM 5 MG TABLET PO PRN ×2 (00:58→20:33)
[2016-02-01] MEDS: morphine CARPU-JECT 2 MG/1 ML DISP.SYRIN IVPUSH PRN ×6 (00:58→23:45)
[2016-02-01 08:13] LABS: MCHC 32.6 g/dl (32.0-36.0); MEAN CELL VOLUME 76.5 fl (80-96); MEAN PLT VOLUME 10.2 fl (7.5-11.1); PLATELET COUNT 298 K/MM3 (134-434); RDW 19.2 % (11.6-15.6)
[2016-02-01 09:07] LABS: CALCIUM 9.1 mg/dL (8.5-10.1); CREATININE 0.5 mg/dL (0.55-1.02)
[2016-02-01] MEDS ORDERED: METHADONE HCL 5 MG TABLET PO ONE (10:00)
--- NOTE | 2016-02-01 10:48 | PN ---
Physical Exam: SUBJECTIVE: Patient seen and examined Pt is awake and alert pt follow simple directions Pt complained of lower ext pain and gen weakness Pt deneis chest pain, palpitation, fever, chills, n/v OBJECTIVE: Vital Signs Period Temp Pulse Resp BP Sys/Maciel Pulse Ox Last 24 Hr 97.8 F-99.3 F 84-98 18-20 136-168/84-89 GENERAL: The patient is awake, alert, and oriented, in no acute distress. HEAD: Normal with no signs of trauma. EYES: PERRL, extraocular movements intact, sclera anicteric, conjunctiva clear. No ptosis. ENT: Ears normal, nares patent, oropharynx clear without exudates, moist mucous membranes. No teeth NECK: Trachea midline, full range of motion, supple. LUNGS: Breath sounds equal, diminshed to auscultation bilaterally, no wheezes, no crackles, no accessory muscle use. HEART: Regular rate and rhythm, S1, S2 without murmur, rub or gallop. ABDOMEN: Soft, nontender, nondistended, normoactive bowel sounds, no guarding, no rebound, no hepatosplenomegaly, no masses. EXTREMITIES: 2+ pulses, warm, well-perfused, no edema. NEUROLOGICAL: slow speech, strength 4/5 in all ext. gait not observed. PSYCH: Normal mood, flat affect. confused at times SKIN: Warm, dry, normal turgor, no rashes or lesions noted Laboratory Results - last 24 hr 02/01/16 02/01/16 07:00 07:00 WBC 8.0 D RBC 4.85 Hgb 12.1 Hct 37.1 MCV 76.5 L MCHC 32.6 RDW 19.2 H Plt Count 298 MPV 10.2 Sodium 137 Potassium 3.5 Chloride 100 Carbon Dioxide 25 Anion Gap 12 BUN 9 Creatinine 0.5 L Random Glucose 98 Calcium 9.1 Active Medications Generic Name Dose Route Start Last Admin Trade Name Freq PRN Reason Stop Dose Admin Diazepam 10 mg 01/30/16 14:11 02/01/16 00:58 Valium - PO 02/02/16 14:10 10 mg Q4H PRN Administration WITHDRAWAL(CONT SUBST) Methadone HCl 10 mg 02/03/16 10:00 Dolophine - PO 02/03/16 10:01 ONCE ONE Methadone HCl 15 mg 02/01/16 10:00 Dolophine - PO 02/01/16 23:59 ONCE ONE Methadone HCl 15 mg 02/02/16 10:00 Dolophine - PO 02/02/16 23:59 ONCE ONE Methadone HCl 5 mg 02/04/16 06:00 Dolophine - PO 02/04/16 06:01 ONCE@0600 ONE Morphine Sulfate 1 mg 01/30/16 09:27 02/01/16 10:24 Morphine Injection - IVPUSH 1 mg Q3H PRN Administration SEVERE PAIN Oxycodone HCl 10 mg 01/30/16 08:28 01/31/16 11:59 Roxicodone - PO 10 mg Q4H PRN Administration PAIN CBC, BMP 02/01/16 07:00 02/01/16 07:00 Laboratory Tests 01/29/16 01/29/16 01/30/16 17:00 17:00 06:30 Ammonia 22.93 Urine Nitrite Negative Ur Leukocyte Esterase Negative Opiates Screen Positive Ur Amphetamines Screen Positive Benzodiazepines Screen Positive U Marijuana (THC) Screen Positive CT head 01/29/16: New areas of subcortical decreased density without significant mass effect. Further imaging with contrast enhanced CT or MR is suggested. CXR 01/29/16: Interval increase opacity in the left the upper lobe, suprahilar region for which correlation with CT scan of the chest is needed for better comparison to prior CT scan of the chest dated 12/13/2015 CT chest 12/13/2015 : Abnormal CT scan findings highly suspicious for left upper lobe lung mass with satellite metastatic lesions and possible nodular metastasis to the left adrenal with metastatic bone disease. Correlation with PET CT scan recommended for further evaluation. ASSESSMENT/PLAN: 55 year old female with pmh of Stage 4 breast cancer with bone metastasis, right breast mastectomy, asthma, polysubstance abuse including alcohol and opiate, Hepatitis B presented to the ED with complaint of generalized weakness, pt was found to have new areas on decreased density on head CT Generalized weakness r/o brain mets vs infectious etiology UA negative, no wbc, CXR no acute findings CT head done neurology consulted MRI brain ordered Consider Hem/onc Consider Neurosurgery and radiation oncology post MRI result Metastatic Breast cancer Consider hem Onc consult f/u MRI result Asthma Stable right now Consider Duoneb prn Polysubstance abuse Dr Farah consulted on methadone taper FEN Fluid: none Electrolytes: monitor chemistry Nutrition: regular diet DVT prophylaxis consider heparin sq Dispostion: keep in medsurg Visit type - Emergency Visit Emergency Visit: Yes ED Registration Date: 01/29/16 Care time: The patient presented to the Emergency Department on the above date and was hospitalized for further evaluation of their emergent condition. - New Patient This patient is new to me today: Yes Date on this admission: 02/01/16 - Critical Care Critical Care patient: No
--- NOTE | 2016-02-01 12:38 | PN ---
Teaching Attending Note Name of Resident: Jorge Jolly ATTENDING PHYSICIAN STATEMENT I saw and evaluated the patient. I reviewed the resident's note and discussed the case with the resident. I agree with the resident's findings and plan as documented. SUBJECTIVE: Pt is awake and alert ,c/o having lower ext pain with generalized weakness. Denies chest pain, palpitation, fever, chills, n/v. OBJECTIVE: Vital Signs Temperature 97.9 F 02/01/16 08:00 Pulse Rate 98 H 02/01/16 08:00 Respiratory Rate 20 02/01/16 08:00 Blood Pressure 153/89 02/01/16 08:00 O2 Sat by Pulse Oximetry (%) 99 02/01/16 09:00 GENERAL: The patient is awake, alert, and oriented, in no acute distress. HEAD: Normal with no signs of trauma. EYES: PERRL, extraocular movements intact, sclera anicteric, conjunctiva clear. ENT: Ears normal, oropharynx clear without exudates, moist mucous membranes. No teeth NECK: Trachea midline, full range of motion, supple. LUNGS: Breath sounds equal, diminshed to auscultation bilaterally, no wheezes, no crackles, no accessory muscle use. HEART: Regular rate and rhythm, S1, S2 positive, no rub or gallop. ABDOMEN: Soft, nontender, nondistended, normoactive bowel sounds, no guarding, no rebound, no hepatosplenomegaly, no masses. EXTREMITIES: 2+ pulses, warm, well-perfused, no edema. NEUROLOGICAL: slow speech, strength 4/5 in all ext. gait not observed. PSYCH: Normal mood, flat affect. confused at times SKIN: Warm, dry, normal turgor, no rashes or lesions noted CBCD WBC 8.0 K/mm3 (4.0-10.0) D 02/01/16 07:00 RBC 4.85 M/mm3 (3.60-5.2) 02/01/16 07:00 Hgb 12.1 GM/dL (10.7-15.3) 02/01/16 07:00 Hct 37.1 % (32.4-45.2) 02/01/16 07:00 MCV 76.5 fl (80-96) L 02/01/16 07:00 MCHC 32.6 g/dl (32.0-36.0) 02/01/16 07:00 RDW 19.2 % (11.6-15.6) H 02/01/16 07:00 Plt Count 298 K/MM3 (134-434) 02/01/16 07:00 MPV 10.2 fl (7.5-11.1) 02/01/16 07:00 CMP Sodium 137 mmol/L (136-145) 02/01/16 07:00 Potassium 3.5 mmol/L (3.5-5.1) 02/01/16 07:00 Chloride 100 mmol/L (98-107) 02/01/16 07:00 Carbon Dioxide 25 mmol/L (21-32) 02/01/16 07:00 Anion Gap 12 (8-16) 02/01/16 07:00 BUN 9 mg/dL (7-18) 02/01/16 07:00 Creatinine 0.5 mg/dL (0.55-1.02) L 02/01/16 07:00 Creat Clearance w eGFR > 60 (>60) 01/29/16 12:51 Random Glucose 98 mg/dL (74-106) 02/01/16 07:00 Calcium 9.1 mg/dL (8.5-10.1) 02/01/16 07:00 Total Bilirubin 0.7 mg/dL (0.2-1.0) 01/29/16 12:51 AST 55 U/L (15-37) H D 01/29/16 12:51 ALT 13 U/L (12-78) 01/29/16 12:51 Alkaline Phosphatase 112 U/L (45-117) 01/29/16 12:51 Total Protein 6.4 g/dl (6.4-8.2) 01/29/16 12:51 Albumin 2.9 g/dl (3.4-5.0) L 01/29/16 12:51 Current Medications Generic Name Dose Route Start Last Admin Trade Name Freq PRN Reason Stop Dose Admin Diazepam 10 mg 01/30/16 14:11 02/01/16 00:58 Valium - PO 02/02/16 14:10 10 mg Q4H PRN Administration WITHDRAWAL(CONT SUBST) Methadone HCl 10 mg 02/03/16 10:00 Dolophine - PO 12/28/16 10:01 ONCE ONE Methadone HCl 15 mg 02/01/16 10:00 Dolophine - PO 02/01/16 23:59 ONCE ONE Methadone HCl 15 mg 02/02/16 10:00 Dolophine - PO 02/02/16 23:59 ONCE ONE Methadone HCl 5 mg 02/04/16 06:00 Dolophine - PO 02/04/16 06:01 ONCE@0600 ONE Morphine Sulfate 1 mg 01/30/16 09:27 02/01/16 10:24 Morphine Injection - IVPUSH 1 mg Q3H PRN Administration SEVERE PAIN Oxycodone HCl 10 mg 01/30/16 08:28 01/31/16 11:59 Roxicodone - PO 10 mg Q4H PRN Administration PAIN Medication Instructions Recorded Pregabalin [Lyrica] 50 mg PO BID 12/12/15 Laboratory Tests 01/29/16 17:00 Opiates Screen Positive Ur Amphetamines Screen Positive Benzodiazepines Screen Positive U Marijuana (THC) Screen Positive ASSESSMENT AND PLAN: This is a 55-year-old woman with a history of stage 4 breast cancer with bone metastases, right mastectomy, opiate and alcohol abuse, hepatitis B, sickle cell trait and asthma who presented with weakness and was found to have possible brain metastases on head CT. # Acute Generalized weakness ; Head CT shows multiple hypodense areas without mass effect, MRI of brain ordered pending Urine screen positive for opiates, amphetamines,benzos,marijuna ; Valium for withdrawel as per [facility] consult grp. # Stage 4 breast cancer with bone and possible brain metastases MRI of brain to evaluate for metastases Will hold steroids pending MRI as there is no mass effect seen on CT, Palliative care consult # Asthma Stable # Opioid dependence Started on Methadone taper as per DVT Px: SCds for now
--- NOTE | 2016-02-01 15:24 | EKG ---
Test Reason : Blood Pressure : / mmHG Vent. Rate : 092 BPM Atrial Rate : 092 BPM P-R Int : 146 ms QRS Dur : 098 ms QT Int : 392 ms P-R-T Axes : 070 001 048 degrees QTc Int : 484 ms NORMAL SINUS RHYTHM PROLONGED QT ABNORMAL ECG WHEN COMPARED WITH ECG OF 29-JAN-2016 15:22, NO SIGNIFICANT CHANGE WAS FOUND Confirmed by NUBIA COULTER MD ([id number]) on 02/01/2016 3:24:06 PM Referred By: Maya SHI Overread By: NUBIA COULTER MD
[2016-02-01] MEDS: oxyCODONE HCL 5 MG TABLET PO PRN (22:39)
[2016-02-02] MEDS: diazePAM 5 MG TABLET PO PRN ×4 (01:27→21:46)
[2016-02-02] MEDS: morphine CARPU-JECT 2 MG/1 ML DISP.SYRIN IVPUSH PRN ×2 (05:11→08:23)
--- NOTE | 2016-02-02 09:06 | PN ---
Physical Exam: SUBJECTIVE: Patient seen and examined Pt is awake, alert and oriented to person and place No s/s of acute distress. pt is more awake and alert this morning Pt moves all ext Pt complained of pain all over denies numbness, tingling, focal weakness OBJECTIVE: Vital Signs Period Temp Pulse Resp BP Sys/Maciel Pulse Ox Last 24 Hr 97.2 F-98.4 F 82-97 18-21 152/90 99-99 GENERAL: The patient is awake, alert, and oriented, in no acute distress. HEAD: Normal with no signs of trauma. EYES: PERRL, extraocular movements intact, sclera anicteric, conjunctiva clear. No ptosis. ENT: Ears normal, nares patent, oropharynx clear without exudates, moist mucous membranes. No teeth NECK: Trachea midline, full range of motion, supple. LUNGS: Breath sounds equal, diminished to auscultation bilaterally, no wheezes , no crackles, no accessory muscle use. HEART: Regular rate and rhythm, S1, S2 without murmur, rub or gallop. ABDOMEN: Soft, nontender, nondistended, normoactive bowel sounds, no guarding, no rebound, no hepatosplenomegaly, no masses. EXTREMITIES: 2+ pulses, warm, well-perfused, no edema. NEUROLOGICAL: slow speech, strength 4/5 in all ext. gait not observed. PSYCH: Normal mood, flat affect. confused at times SKIN: Warm, dry, normal turgor, no rashes or lesions noted Laboratory Results - last 24 hr 02/01/16 07:00 Sodium 137 Potassium 3.5 Chloride 100 Carbon Dioxide 25 Anion Gap 12 BUN 9 Creatinine 0.5 L Random Glucose 98 Calcium 9.1 Active Medications Generic Name Dose Route Start Last Admin Trade Name Freq PRN Reason Stop Dose Admin Diazepam 10 mg 01/30/16 14:11 02/02/16 05:11 Valium - PO 02/02/16 14:10 10 mg Q4H PRN Administration WITHDRAWAL(CONT SUBST) Methadone HCl 10 mg 02/03/16 10:00 Dolophine - PO 02/03/16 10:01 ONCE ONE Methadone HCl 15 mg 02/01/16 10:00 Dolophine - PO 02/01/16 23:59 ONCE ONE Methadone HCl 15 mg 02/02/16 10:00 Dolophine - PO 02/02/16 23:59 ONCE ONE Methadone HCl 5 mg 02/04/16 06:00 Dolophine - PO 02/04/16 06:01 ONCE@0600 ONE Morphine Sulfate 1 mg 01/30/16 09:27 02/02/16 08:23 Morphine Injection - IVPUSH 1 mg Q3H PRN Administration SEVERE PAIN Oxycodone HCl 5 mg 02/02/16 08:40 Roxicodone - PO 02/03/16 08:39 Q4H PRN PAIN CBC, BMP 02/01/16 07:00 02/01/16 07:00 CT head 01/29/16: New areas of subcortical decreased density without significant mass effect. Further imaging with contrast enhanced CT or MR is suggested. CXR 01/29/16: Interval increase opacity in the left the upper lobe, suprahilar region for which correlation with CT scan of the chest is needed for better comparison to prior CT scan of the chest dated 12/13/2015 CT chest 12/13/2015 : Abnormal CT scan findings highly suspicious for left upper lobe lung mass with satellite metastatic lesions and possible nodular metastasis to the left adrenal with metastatic bone disease. Correlation with PET CT scan recommended for further evaluation. ASSESSMENT/PLAN: 55 year old female with pmh of Stage 4 breast cancer with bone metastasis, right breast mastectomy, asthma, polysubstance abuse including alcohol and opiate, Hepatitis B presented to the ED with complaint of generalized weakness, pt was found to have new areas on decreased density on head CT Generalized weakness r/o brain mets vs infectious etiology UA negative, no wbc, CXR no acute findings CT head done neurology consulted MRI brain ordered to be done today Consider Hem/onc Consider Neurosurgery and radiation oncology post MRI result Metastatic Breast cancer Consider hem Onc consult f/u MRI result Asthma Stable right now Consider Duoneb prn Polysubstance abuse Dr Farah consulted on methadone taper FEN Fluid: none Electrolytes: monitor chemistry Nutrition: regular diet DVT prophylaxis consider heparin sq Dispostion: keep in medsurg pending MRI results Visit type - Emergency Visit Emergency Visit: Yes ED Registration Date: 01/29/16 Care time: The patient presented to the Emergency Department on the above date and was hospitalized for further evaluation of their emergent condition. - New Patient This patient is new to me today: No - Critical Care Critical Care patient: No
--- NOTE | 2016-02-02 09:44 | PN ---
Teaching Attending Note Name of Resident: Jorge Jolly ATTENDING PHYSICIAN STATEMENT I saw and evaluated the patient. I reviewed the resident's note and discussed the case with the resident. I agree with the resident's findings and plan as documented. SUBJECTIVE: Patient is awake and alert today answering questions appropiately. follows commands. OBJECTIVE: Vital Signs Temperature 97.8 F 02/02/16 05:58 Pulse Rate 97 H 02/02/16 05:58 Respiratory Rate 18 02/02/16 05:58 Blood Pressure 152/90 02/02/16 05:58 O2 Sat by Pulse Oximetry (%) 99 02/01/16 21:00 GENERAL: The patient is awake, alert, and oriented, in no acute distress. HEAD: Normal with no signs of trauma. EYES: PERRL, extraocular movements intact, sclera anicteric, conjunctiva clear. ENT: Ears normal, oropharynx clear without exudates, moist mucous membranes. No teeth NECK: Trachea midline, full range of motion, supple. LUNGS: Breath sounds equal, diminshed to auscultation bilaterally, no wheezes, no crackles, no accessory muscle use. HEART: Regular rate and rhythm, S1, S2 positive, no rub or gallop. ABDOMEN: Soft, nontender, nondistended, normoactive bowel sounds, no guarding, no rebound, no hepatosplenomegaly, no masses. EXTREMITIES: 2+ pulses, warm, well-perfused, no edema. NEUROLOGICAL: slow speech, strength 4/5 in all ext. gait not observed. PSYCH: Normal mood, flat affect. confused at times SKIN: Warm, dry, normal turgor, no rashes or lesions noted CBCD WBC 8.0 K/mm3 (4.0-10.0) D 02/01/16 07:00 RBC 4.85 M/mm3 (3.60-5.2) 02/01/16 07:00 Hgb 12.1 GM/dL (10.7-15.3) 02/01/16 07:00 Hct 37.1 % (32.4-45.2) 02/01/16 07:00 MCV 76.5 fl (80-96) L 02/01/16 07:00 MCHC 32.6 g/dl (32.0-36.0) 02/01/16 07:00 RDW 19.2 % (11.6-15.6) H 02/01/16 07:00 Plt Count 298 K/MM3 (134-434) 02/01/16 07:00 MPV 10.2 fl (7.5-11.1) 02/01/16 07:00 CMP Sodium 137 mmol/L (136-145) 02/01/16 07:00 Potassium 3.5 mmol/L (3.5-5.1) 02/01/16 07:00 Chloride 100 mmol/L (98-107) 02/01/16 07:00 Carbon Dioxide 25 mmol/L (21-32) 02/01/16 07:00 Anion Gap 12 (8-16) 02/01/16 07:00 BUN 9 mg/dL (7-18) 02/01/16 07:00 Creatinine 0.5 mg/dL (0.55-1.02) L 02/01/16 07:00 Creat Clearance w eGFR > 60 (>60) 01/29/16 12:51 Random Glucose 98 mg/dL (74-106) 02/01/16 07:00 Calcium 9.1 mg/dL (8.5-10.1) 02/01/16 07:00 Total Bilirubin 0.7 mg/dL (0.2-1.0) 01/29/16 12:51 AST 55 U/L (15-37) H D 01/29/16 12:51 ALT 13 U/L (12-78) 01/29/16 12:51 Alkaline Phosphatase 112 U/L (45-117) 01/29/16 12:51 Total Protein 6.4 g/dl (6.4-8.2) 01/29/16 12:51 Albumin 2.9 g/dl (3.4-5.0) L 01/29/16 12:51 Current Medications Generic Name Dose Route Start Last Admin Trade Name Freq PRN Reason Stop Dose Admin Diazepam 10 mg 01/30/16 14:11 02/02/16 05:11 Valium - PO 02/02/16 14:10 10 mg Q4H PRN Administration WITHDRAWAL(CONT SUBST) Methadone HCl 10 mg 02/03/16 10:00 Dolophine - PO 02/03/16 10:01 ONCE ONE Methadone HCl 15 mg 02/01/16 10:00 Dolophine - PO 02/01/16 23:59 ONCE ONE Methadone HCl 15 mg 02/02/16 10:00 Dolophine - PO 02/02/16 23:59 ONCE ONE Methadone HCl 5 mg 02/04/16 06:00 Dolophine - PO 02/04/16 06:01 ONCE@0600 ONE Morphine Sulfate 1 mg 01/30/16 09:27 02/02/16 08:23 Morphine Injection - IVPUSH 1 mg Q3H PRN Administration SEVERE PAIN Oxycodone HCl 5 mg 02/02/16 08:40 Roxicodone - PO 02/03/16 08:39 Q4H PRN PAIN Medication Instructions Recorded Pregabalin [Lyrica] 50 mg PO BID 12/12/15 ASSESSMENT AND PLAN: This is a 55-year-old woman with a history of stage 4 breast cancer with bone metastases, right mastectomy, opiate and alcohol abuse, hepatitis B, sickle cell trait and asthma who presented with weakness and was found to have possible brain metastases on head CT. # Acute Generalized weakness ; Head CT shows multiple hypodense areas without mass effect, MRI of brain ordered, result reviewed: positive for brain mets infratentorial and supratentorial brain mets. Will get her oncologist to see her. Neurologist on the case Urine screen positive for opiates, amphetamines,benzos,marijuna ; Valium for withdrawel as per [facility] Neuro consult Dr.Soliman odom. Patient is looking better than yesterday. # Stage 4 breast cancer with bone and possible brain metastases MRI of brain to evaluate for metastases Will hold steroids pending MRI as there is no mass effect seen on CT, Palliative care consult # Asthma Stable # Opioid dependence Started on Methadone taper as per DVT Px: SCds
[2016-02-02] MEDS ORDERED: METHADONE HCL 5 MG TABLET PO ONE (10:00)
[2016-02-02] MEDS: oxyCODONE HCL 5 MG TABLET PO PRN ×2 (11:13→21:46)
[2016-02-03] MEDS: oxyCODONE HCL 5 MG TABLET PO PRN (03:33)
[2016-02-03] MEDS: diazePAM 5 MG TABLET PO PRN ×3 (03:33→23:49)
[2016-02-03] MEDS ORDERED: METHADONE HCL 10 MG TABLET PO ONE (10:00)
--- NOTE | 2016-02-03 16:35 | PN ---
Physical Exam: SUBJECTIVE: Patient seen and examined Pt seen this morning was laying on the floor refused to stay in bed was aggressive to the nursing staff after discussion she agrees to sit in a chair Pt denied pain, no fever, chills, n/v, sob, palpitations OBJECTIVE: Vital Signs Period Temp Pulse Resp BP Sys/Maciel Pulse Ox Last 24 Hr 97.2 F-98.8 F 82-117 20-22 111-134/57-96 96 GENERAL: The patient is awake, alert, and oriented, in no acute distress. HEAD: Normal with no signs of trauma. EYES: PERRL, extraocular movements intact, sclera anicteric, conjunctiva clear. No ptosis. no teeth ENT: Ears normal, nares patent, oropharynx clear without exudates, moist mucous membranes. No teeth NECK: Trachea midline, full range of motion, supple. LUNGS: Breath sounds equal, diminished to auscultation bilaterally, no wheezes , no crackles, no accessory muscle use. HEART: Regular rate and rhythm, S1, S2 without murmur, rub or gallop. ABDOMEN: Soft, nontender, nondistended, normoactive bowel sounds, no guarding, no rebound, no hepatosplenomegaly, no masses. EXTREMITIES: 2+ pulses, warm, well-perfused, no edema. NEUROLOGICAL: slow speech, strength 4/5 in all ext. unable to stand and walk to due to gen weakness. No facial asymmetry PSYCH: Normal mood, flat affect. confused at times SKIN: Warm, dry, normal turgor, no rashes or lesions noted Active Medications Generic Name Dose Route Start Last Admin Trade Name Freq PRN Reason Stop Dose Admin Diazepam 10 mg 02/02/16 20:06 02/03/16 09:22 Valium - PO 02/05/16 20:06 10 mg Q4H PRN Administration WITHDRAWAL(CONT SUBST) Enoxaparin Sodium 40 mg 02/03/16 14:45 Lovenox - SQ DAILY [facility] Methadone HCl 15 mg 02/01/16 10:00 Dolophine - PO 02/01/16 23:59 ONCE ONE Methadone HCl 15 mg 02/02/16 10:00 Dolophine - PO 02/02/16 23:59 ONCE ONE Methadone HCl 5 mg 02/04/16 06:00 Dolophine - PO 02/04/16 06:01 ONCE@0600 ONE Morphine Sulfate 1 mg 01/30/16 09:27 02/02/16 08:23 Morphine Injection - IVPUSH 1 mg Q3H PRN Administration SEVERE PAIN CBC, BMP 02/01/16 07:00 02/01/16 07:00 MRI Brain 02/02/16: Motion artifacts observed on several sequences. Scatter vasogenic edema is observed in the infratentorial, supratentorial brain parenchyma. No evidence of herniation. Heterogeneous enhancing masses are observed in the lateral aspect of the right cerebellum measuring 20 mm x 19 mm, 10 mm. Enhancing lesions measuring 7.0 mm x 7.5 mm is observed in the region of the left middle cerebellar peduncle. Enhancing lesions are observed in the superior aspect of the vermis some in vicinity of the aqueduct. Abnormal enhancement is seen in the interpeduncular cistern. Several enhancing lesions are noted in the mid melva Several enhancing cortical lesions at the junction of the white and pappas matter are observed in the temporal lobes. Cortical based enhancing lesion in the left cingulate gyrus. Few small enhancing lesions are noted in the bilateral frontal lobes. . Periventricular chronic microangiopathic ischemic changes. Questionable punctate foci of restricted diffusion in bilateral frontal centrum semiovale. The major caliber vascular structures of [place] and peripheral dural venous sinuses show normal flow-void signal characteristics. No abnormality seen in the pontomedullary junction region. No evidence of Chiari malformation. MRI Brain 02/02/16 Impression. Infratentorial, supratentorial brain metastasis. CT head 01/29/16: New areas of subcortical decreased density without significant mass effect. Further imaging with contrast enhanced CT or MR is suggested. CXR 01/29/16: Interval increase opacity in the left the upper lobe, suprahilar region for which correlation with CT scan of the chest is needed for better comparison to prior CT scan of the chest dated 12/13/2015 CT chest 12/13/2015 : Abnormal CT scan findings highly suspicious for left upper lobe lung mass with satellite metastatic lesions and possible nodular metastasis to the left adrenal with metastatic bone disease. Correlation with PET CT scan recommended for further evaluation. ASSESSMENT/PLAN: 55 year old female with pmh of Stage 4 breast cancer with bone metastasis, right breast mastectomy, asthma, polysubstance abuse including alcohol and opiate, Hepatitis B presented to the ED with complaint of generalized weakness, pt was found to have new areas on decreased density on head CT Generalized weakness r/o brain mets vs infectious etiology UA negative, no wbc, CXR no acute findings CT head done neurology consulted MRI brain ordered to be done with Infratentorial, supratentorial brain metastasis. Hem/On consulted, case discussed with Dr Otero Radiation oncology consulted Dr Hilliard Start Decadron 4 mg PO q6h, may switch to IV if ok with Hem/Onc to access port Protonix 40po daily start Keppra 500mg PO for seizure prevention Metastatic Breast cancer Per Dr Otero pt has mets in spine and pelvis and multiple other bone, no need for further imaging at this point for staging Pt may not tolerate chemotherapy, radiation therapy is a better option for now Hem Onc consulted f/u hem onc recommendations palliative care consult Asthma Stable right now Consider Duoneb prn Polysubstance abuse Dr Farah consulted on methadone taper FEN Fluid: none Electrolytes: Nutrition: regular diet DVT prophylaxis consider heparin sq Dispostion: keep in medsurg pending Dr Otero and Dr Michael quezada Visit type - Emergency Visit Emergency Visit: Yes ED Registration Date: 01/29/16 Care time: The patient presented to the Emergency Department on the above date and was hospitalized for further evaluation of their emergent condition. - New Patient This patient is new to me today: No - Critical Care Critical Care patient: No
[2016-02-03] MEDS: ENOXAPARIN NA (PORCINE) 40 MG/0.4 ML DISP.SYRIN SQ SCH (17:32)
[2016-02-03] MEDS: DEXAMETHASONE 4 MG TABLET (FP) PO SCH (17:32)
--- NOTE | 2016-02-03 19:59 | PN ---
Teaching Attending Note Name of Resident: Jorge Jolly ATTENDING PHYSICIAN STATEMENT I saw and evaluated the patient. I reviewed the resident's note and discussed the case with the resident. I agree with the resident's findings and plan as documented. SUBJECTIVE: unable to obtain hx. this am was on the floor and refused to cooperate . condition 10 called . sitter placed OBJECTIVE: NAD, lethargic , arousable . not cooperative CV: RRR lUngs : CTAB abd :soft, NT, ND , nl BS ext : no edema on LEges NEuro : very limited. no facial droop, equal round pupils , unable to assess sensation or strength. reflexes 1+ biceps and knee jerk R breast bed with no masses , not abl eto examin R axilla . L breast with no masses and n LAP in axilla ASSESSMENT AND PLAN: 55 y/o lady with h/o drug abuse , met breast cancer to spine and pelvis who presented with generalized weakness. 1- breast cancer with brain mets on MRI - consult Radiation Onc - start Keppra and decadron - Neuro c/s - ONc consult pending - palliative consult . - poor prognosis 2- opioid abuse : cont methadone taper 3- benzo abuse : valum PRN . 4- h/o asthma , inhalers , nebs dispo : HLOC . pending Onc eval , and Rad oNc eval , will discuss possible hospice with family
--- NOTE | 2016-02-03 20:38 | CONSULT ---
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 Pt sleepy, with CO at bedside.To be started on Decadron 4mg iv q6h , PPI . - History Source History Provided By: Patient, Medical Record Limitations to Obtaining History: Clinical Condition - Past Medical History MICROFILM MOUNTER: No: Alzheimer's, CVA, Dementia, Migraine, Multiple Sclerosis, Peripheral Neuropathy, Parkinson's, Seizure, Syncope, TIA, Vertigo, Other Cardio/Vascular: No: AFIB, Aneurysm, Aortic Insufficiency, Aortic Stenosis, CAD , CHF, Deep Vein Thrombosis, HTN, Hyperlipdemia, MA, Mitral Insufficiency, Mitral Stenosis, Murmur, Pulmonary Hypertension, Other Pulmonary: No: Asthma, Bronchitis, Cancer, COPD, O2 Dependent, Pneumonia, Previously Intubated, Pulmonary Embolus, Pulmonary Fibrosis, Sleep Apnea, Other Gastrointestinal: No: Ascites, Cancer, Constipation, Crohn's Disease, Diverticulitis, Diverticulosis, Esophageal Varices, Gastritis, GERD, GI Bleed, Hemorrhoids, Hiatal Hernia, Inflamatory Bowel Disease, Irritable Bowel Disease, Pancreatitis, Peptic Ulcer Disease, Ulcerative Colitis, Other ...LMP: 09/20/11 ...: No Psych: Yes: Addictions Musculoskeletal: Yes: Chronic low back pain (chronic LE weakness) - Alcohol/Substance Use Hx Alcohol Use: No - Smoking History Smoking history: Current every day smoker Have you smoked in the past 12 months: No Aproximately how many cigarettes per day: 20 Home Medications - Allergies Allergies/Adverse Reactions: Allergies Allergy/AdvReac Type Severity Reaction Status Date / Time No Known Allergies Allergy Verified 12/23/16 11:13 - Home Medications Home Medications: Ambulatory Orders Pregabalin [Lyrica] 50 mg PO BID 12/12/15 Family Disease History - Family Disease History Family Disease History: Heart Disease: Father, CA: Mother (breast ), Other: Sister (addiction, HIV) Review of Systems - Review of Systems Constitutional: reports: Loss of Appetite, Unintentional Wgt. Loss, Weakness HENT: reports: No Symptoms Neck: denies: No Symptoms, Decreased ROM, Lumps, Pain on Movement, Stiffness, Swollen Glands, Tenderness, Other Cardiovascular: denies: No Symptoms, Chest Pain, Edema, Palpitations, Shortness of Breath, Other Respiratory: denies: No Symptoms, Cough, Exercise Intolerance, Hemoptysis, Orthopnea, PND, Snoring, SOB, SOB on Exertion, Wheezing, Other Gastrointestinal: reports: Constipation Genitourinary: denies: No Symptoms, Burning, Discharge, Dysuria, Flank Pain, Frequency, Hematuria, Incontinence, Lesions, Menses, Pain, Testicular Mass, Testicular Pain, Testicular Swelling, Urgency, Vaginal Bleeding, Other Musculoskeletal: reports: Back Pain, Extremity Pain, Muscle Pain, Muscle Weakness Integumentary: denies: No Symptoms, Blister, Bruising, Change in Color, Eczema, Erythema, Incision, Lesions, Lump, Pallor, Pruritis, Rash, Wound, Other Neurological: reports: Change in Speech, Confusion, Unsteady Gait, Weakness. denies: No Symptoms, Change in LOC, Dizziness, Headache, Incoordination, Numbness, Parasthesia, Pre-Existing Deficit, Seizure, Syncope, Tremors, Other Endocrine: denies: No Symptoms, Excessive Sweating, Flushing, Increased Hunger, Increased Thirst, Intolerance to Cold, Intolerance to Heat, Unexplained Weight Gain, Unexplained Weight Loss, Other Hematology/Lymphatic: denies: No Symptoms, Easily Bruised, Excessive Bleeding, Swollen Glands, Other Physical Exam Vital Signs: Vital Signs Temperature 98.5 F 02/03/16 13:27 Pulse Rate 117 H 02/03/16 13:27 Respiratory Rate 22 02/03/16 13:27 Blood Pressure 134/96 02/03/16 09:00 O2 Sat by Pulse Oximetry (%) 96 02/02/16 20:43 Constitutional: Yes: Well Nourished, No Distress (sleepy), Other Eyes: Yes: Conjunctiva Clear, EOM Intact HENT: Yes: WNL, Atraumatic, Normocephalic Neck: Yes: WNL, Supple, Trachea Midline Cardiovascular: Yes: WNL, Regular Rate and Rhythm Respiratory: Yes: WNL, Regular, CTA Bilaterally Gastrointestinal: Yes: WNL, Normal Bowel Sounds, Soft. No: Abdomen, Obese, Ascites, Distention, Hematemesis, Hemorrhoids, Hepatomegaly, Hernia, Hyperactive Bowel Sounds, Hypoactive Bowel Sounds, Melena, Palpable Mass, Pulsatile Mass, Rectal Bleeding, Splenomegaly, Tenderness, Tenderness, Epigastrium, Tenderness, Rebound, Vomiting, Other Musculoskeletal: Yes: Muscle Weakness (generalized) Edema: No Wound/Incision: Yes: Other (port L side-nl) Neurological: Yes: Facial Droop (generalized weakness), Lethargy, Unresponsive ( currently sleepy) Labs: CBC, BMP 02/01/16 07:00 02/01/16 07:00 Problem List - Problems (1) Breast cancer metastasized to bone Code(s): C50.919 - MALIGNANT NEOPLASM OF UNSP SITE OF UNSPECIFIED FEMALE BREAST C79.51 - SECONDARY MALIGNANT NEOPLASM OF BONE Qualifiers: Laterality: right Qualified Code(s): C50.911 - Malignant neoplasm of unspecified site of right female breast; C79.51 - Secondary malignant neoplasm of bone (2) Brain metastases Code(s): C79.31 - SECONDARY MALIGNANT NEOPLASM OF BRAIN Assessment/Plan Pt now in terminal phase of illness with multiple brain mets , deterioration of performance status; advise RT consult for WBRT , steroids,PPI , Keppra for seizure prophylaxis (neurology imput) , Social Work intervention to look at inpatient hospice , possibly after WBRT ; I do not thinik she is a good candidate to continue w systemic Rx ; prognosis likely less than 6 months for hospice purposes.I spoke w brother Reggie and son Linh on phone ,poor prognosis explained. Advised them to think of instituting DNR/DNI.She may get temporary benefit from RT .
[2016-02-03] MEDS: levETIRAcetam 500 MG TABLET (FP) PO SCH (21:06)
[2016-02-04] MEDS: DEXAMETHASONE 4 MG TABLET (FP) PO SCH ×4 (00:04→17:22)
[2016-02-04] MEDS: diazePAM 5 MG TABLET PO PRN (05:11)
[2016-02-04] MEDS ORDERED: METHADONE HCL 5 MG TABLET PO ONE (06:00)
[2016-02-04] MEDS: levETIRAcetam 500 MG TABLET (FP) PO SCH (09:37)
[2016-02-04] MEDS: ENOXAPARIN NA (PORCINE) 40 MG/0.4 ML DISP.SYRIN SQ SCH (09:37)
[2016-02-04] MEDS: PANTOPRAZOLE 40 MG TABLET (FP) PO SCH (09:37)
--- NOTE | 2016-02-04 15:04 | PN ---
Progress Note (short form) - Note Progress Note: Radiation Oncology (full consult to follow) Impression: Metastatic breast cancer s/p chemotx with intracranial progression. She has multiple (>10) brain mets with edema. Options incl decadron +/- WBRT. Given poor prognosis, palliative care and hospice would be appropriate as well. Spoke to her partner Patrick and brother Reggie. Plan: Await family decision. Cont steroids/PPI. Neuro monitoring and f/u.
--- NOTE | 2016-02-04 15:08 | PN ---
Progress Note, Physician Chief Complaint: generalized weakness History of Present Illness: 55 y/o F with pmh. 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 CT and MRI brain show multiple infra and supra tentorial mets. - Current Medication List Current Medications: Active Medications Dexamethasone (Decadron -) 4 mg PO Q6HPO [facility] Last Admin: 02/04/16 11:54 Dose: 4 mg Diazepam (Valium -) 10 mg PO Q4H PRN PRN Reason: WITHDRAWAL(CONT SUBST) Stop: 02/05/16 20:06 Last Admin: 02/04/16 05:11 Dose: 10 mg Enoxaparin Sodium (Lovenox -) 40 mg SQ DAILY [facility] Last Admin: 02/04/16 09:37 Dose: 40 mg Levetiracetam (Keppra -) 500 mg PO BID [facility] Last Admin: 02/04/16 09:37 Dose: 500 mg Methadone HCl (Dolophine -) 15 mg PO ONCE ONE Stop: 02/01/16 23:59 Methadone HCl (Dolophine -) 15 mg PO ONCE ONE Stop: 02/02/16 23:59 Morphine Sulfate (Morphine Injection -) 1 mg IVPUSH Q3H PRN PRN Reason: SEVERE PAIN Last Admin: 02/02/16 08:23 Dose: 1 mg Pantoprazole Sodium (Protonix -) 40 mg PO DAILY [facility] Last Admin: 02/04/16 09:37 Dose: 40 mg - Objective Vital Signs: Vital Signs Temperature 97.2 F L 02/04/16 14:00 Pulse Rate 80 02/04/16 14:00 Respiratory Rate 18 02/04/16 14:00 Blood Pressure 150/70 02/04/16 11:03 O2 Sat by Pulse Oximetry (%) 97 02/04/16 09:00 Constitutional: Yes: Mild Distress Eyes: Yes: Conjunctiva Clear, EOM Intact HENT: Yes: Atraumatic, Normocephalic Neck: Yes: Supple, Trachea Midline Cardiovascular: Yes: Regular Rate and Rhythm, S1, S2 Respiratory: Yes: Regular, CTA Bilaterally Gastrointestinal: Yes: Normal Bowel Sounds, Soft Genitourinary: Yes: WNL Breast(s): Yes: WNL Musculoskeletal: Yes: WNL, Back Pain, Muscle Weakness Extremities: Yes: WNL Edema: No Peripheral Pulses WNL: Yes Neurological: Yes: Alert, Oriented, Cran Nerves II-XII Intact, Weakness ...Motor Strength: LUE (4/5 UE and LE , generalized weakness.) Psychiatric: Yes: Alert, Oriented Labs: CBC, BMP 02/01/16 07:00 02/01/16 07:00 - ....Imaging MRI: Report Reviewed, Image Reviewed Assessment/Plan 55 y/o F with pmh. 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 CT and MRI brain show multiple infra and supra tentorial metastasis. Plan: - follow oncology consult and recommandation regarding radiotherapy and chemotherapy. She doesn't seem to be a surgical case as the mets. are multiple bilaterally.. - continues Decadron iv. ,PPI - if she didn't have a seizure in the last 4-6 months I would hold to [facility] for now. - pain control per pain medicine service. Thank you for this consult.
--- NOTE | 2016-02-04 18:17 | PN ---
Physical Exam: SUBJECTIVE: Patient seen and examined Pt is awake and alert No following direction this morning Pt is calm and quiet Denies pain, fever, chest pain, palpitation, shortness of breath Pt has flat affect sometime does not answer questions asked Discussed with family about patient status and patient prognosis and choices to be made OBJECTIVE: Vital Signs Period Temp Pulse Resp BP Sys/Maciel Pulse Ox Last 24 Hr 97.2 F-99.0 F 80-106 16-18 116-150/66-92 96-97 GENERAL: The patient is awake, alert, and oriented, in no acute distress. HEAD: Normal with no signs of trauma. EYES: PERRL, extraocular movements intact, sclera anicteric, conjunctiva clear. No ptosis. no teeth ENT: Ears normal, nares patent, oropharynx clear without exudates, moist mucous membranes. No teeth NECK: Trachea midline, full range of motion, supple. LUNGS: Breath sounds equal, diminished to auscultation bilaterally, no wheezes , no crackles, no accessory muscle use. HEART: Regular rate and rhythm, S1, S2 without murmur, rub or gallop. ABDOMEN: Soft, nontender, nondistended, normoactive bowel sounds, no guarding, no rebound, no hepatosplenomegaly, no masses. EXTREMITIES: 2+ pulses, warm, well-perfused, no edema. NEUROLOGICAL: slow speech, strength 4/5 in all ext. unable to stand and walk to due to gen weakness. No facial asymmetry PSYCH: Normal mood, flat affect. confused at times SKIN: Warm, dry, normal turgor, no rashes or lesions noted Active Medications Generic Name Dose Route Start Last Admin Trade Name Zach PRN Reason Stop Dose Admin Dexamethasone 4 mg 02/03/16 18:00 02/04/16 17:22 Decadron - PO 4 mg Q6HPO MARGARITA Administration Diazepam 10 mg 02/02/16 20:06 02/04/16 05:11 Valium - PO 02/05/16 20:06 10 mg Q4H PRN Administration WITHDRAWAL(CONT SUBST) Enoxaparin Sodium 40 mg 02/03/16 14:45 02/04/16 09:37 Lovenox - SQ 40 mg DAILY MARGARITA Administration Levetiracetam 500 mg 02/03/16 22:00 02/04/16 09:37 Keppra - PO 500 mg BID MARGARITA Administration Methadone HCl 15 mg 02/01/16 10:00 Dolophine - PO 02/01/16 23:59 ONCE ONE Methadone HCl 15 mg 02/02/16 10:00 Dolophine - PO 02/02/16 23:59 ONCE ONE Morphine Sulfate 1 mg 01/30/16 09:27 02/02/16 08:23 Morphine Injection - IVPUSH 1 mg Q3H PRN Administration SEVERE PAIN Pantoprazole Sodium 40 mg 02/04/16 10:00 02/04/16 09:37 Protonix - PO 40 mg DAILY MARGARITA Administration CBC, BMP 02/01/16 07:00 02/01/16 07:00 MRI Brain 02/02/16: Motion artifacts observed on several sequences. Scatter vasogenic edema is observed in the infratentorial, supratentorial brain parenchyma. No evidence of herniation. Heterogeneous enhancing masses are observed in the lateral aspect of the right cerebellum measuring 20 mm x 19 mm, 10 mm. Enhancing lesions measuring 7.0 mm x 7.5 mm is observed in the region of the left middle cerebellar peduncle. Enhancing lesions are observed in the superior aspect of the vermis some in vicinity of the aqueduct. Abnormal enhancement is seen in the interpeduncular cistern. Several enhancing lesions are noted in the mid melva Several enhancing cortical lesions at the junction of the white and pappas matter are observed in the temporal lobes. Cortical based enhancing lesion in the left cingulate gyrus. Few small enhancing lesions are noted in the bilateral frontal lobes. . Periventricular chronic microangiopathic ischemic changes. Questionable punctate foci of restricted diffusion in bilateral frontal centrum semiovale. The major caliber vascular structures of [place] and peripheral dural venous sinuses show normal flow-void signal characteristics. No abnormality seen in the pontomedullary junction region. No evidence of Chiari malformation. MRI Brain 02/02/16 Impression. Infratentorial, supratentorial brain metastasis. CT head 01/29/16: New areas of subcortical decreased density without significant mass effect. Further imaging with contrast enhanced CT or MR is suggested. CXR 01/29/16: Interval increase opacity in the left the upper lobe, suprahilar region for which correlation with CT scan of the chest is needed for better comparison to prior CT scan of the chest dated 12/13/2015 CT chest 12/13/2015 : Abnormal CT scan findings highly suspicious for left upper lobe lung mass with satellite metastatic lesions and possible nodular metastasis to the left adrenal with metastatic bone disease. Correlation with PET CT scan recommended for further evaluation. ASSESSMENT/PLAN: 55 year old female with pmh of Stage 4 breast cancer with bone metastasis, right breast mastectomy, asthma, polysubstance abuse including alcohol and opiate, Hepatitis B presented to the ED with complaint of generalized weakness, pt was found to have new areas on decreased density on head CT Generalized weakness r/o brain mets vs infectious etiology UA negative, no wbc, CXR no acute findings CT head done neurology consulted MRI brain ordered to be done with Infratentorial, supratentorial brain metastasis. Hem/On consulted, case discussed with Dr Espinoza Radiation oncology consulted Dr Rodriguez, offered WBRT+-steroid vs palliative care On Decadron 4 mg PO q6h, Will switch to IV Protonix 40 po daily On Keppra 500mg PO for seizure prevention per Hem/onc Metastatic Breast cancer Per Dr Espinoza pt has mets in spine and pelvis and multiple other bone, no need for further imaging at this point for staging Pt may not tolerate chemotherapy, radiation therapy followed by palliative is a better option for now f/u hem onc recommendations palliative care consulted Asthma Stable right now Consider Duoneb prn Polysubstance abuse Dr Farah consulted on methadone taper FEN Fluid: none Electrolytes: Nutrition: regular diet DVT prophylaxis consider heparin sq Dispostion: Awaiting family decision rt to chemo vs radiation therpary vs palliative/comfort care only Visit type - Emergency Visit Emergency Visit: Yes ED Registration Date: 01/29/16 Care time: The patient presented to the Emergency Department on the above date and was hospitalized for further evaluation of their emergent condition. - New Patient This patient is new to me today: No - Critical Care Critical Care patient: No
--- NOTE | 2016-02-04 18:27 | PN ---
Teaching Attending Note Name of Resident: Jorge Jolly ATTENDING PHYSICIAN STATEMENT I saw and evaluated the patient. I reviewed the resident's note and discussed the case with the resident. I agree with the resident's findings and plan as documented. SUBJECTIVE: unable to obtain hx as pt is minimally responsive OBJECTIVE: NAD, lethargic , arousable . not cooperative CV: RRR lUngs : CTAB abd :soft, NT, ND , nl BS ext : no edema on LEges NEuro : very limited. no facial droop, equal round pupils , unable to assess sensation or strength. reflexes 1+ biceps and knee jerk ASSESSMENT AND PLAN: 55 y/o lady with h/o drug abuse , met breast cancer to spine and pelvis who presented with generalized weakness. 1- Breast cancer with brain mets on MRI - cont empiric Keppra and decadron - await family decision on palliative RT - Not a candidate for Chemo - appreciate all consultants input . - explained to her poor prognosis . and explained Hospice option . He would like to d/w rest of family firt. - Palliative care c/s pending for help with hospice discussion 2- Opioid abuse : last day of methadone today 3- Benzo abuse : Diazepam PRN . no signs of withdrawal 4- AMS : likely form progression of her brain dz. but also methadone and Diazepam might be contributing Decision regarding Hospice is pending. Code status was d/w pt's . HE will d/w with rest of family . Full code for now
[2016-02-04] MEDS ORDERED: HALOPERIDOL LACTATE 5 MG/ML IM ONE (19:34)
[2016-02-04] MEDS ORDERED: diphenhydrAMINE HCL 25 MG CAPSULE (FP) PO ONE (19:41)
[2016-02-05] MEDS: DEXAMETHASONE 4 MG TABLET (FP) PO SCH ×4 (00:16→17:12)
[2016-02-05] MEDS: diazePAM 5 MG TABLET PO PRN ×4 (00:16→17:13)
--- NOTE | 2016-02-05 07:11 | PN ---
Physical Exam: SUBJECTIVE: Patient seen and examined pt is awake this morning very weak and quiet with slow speech follow simple direction denies pain, sob, fever, chills, lightheadedness OBJECTIVE: Vital Signs Period Temp Pulse Resp BP Sys/Maciel Pulse Ox Last 24 Hr 97.2 F-98.7 F 73-102 16-20 126-155/68-98 96-97 GENERAL: The patient is awake, alert, and oriented, in no acute distress. HEAD: Normal with no signs of trauma. EYES: PERRL, extraocular movements intact, sclera anicteric, conjunctiva clear. No ptosis. no teeth ENT: Ears normal, nares patent, oropharynx clear without exudates, moist mucous membranes. No teeth NECK: Trachea midline, full range of motion, supple. LUNGS: Breath sounds equal, diminished to auscultation bilaterally, no wheezes , no crackles, no accessory muscle use. HEART: Regular rate and rhythm, S1, S2 without murmur, rub or gallop. ABDOMEN: Soft, nontender, nondistended, normoactive bowel sounds, no guarding, no rebound, no hepatosplenomegaly, no masses. EXTREMITIES: 2+ pulses, warm, well-perfused, no edema. NEUROLOGICAL: slow speech, strength 4/5 in all ext. unable to stand and walk to due to gen weakness. No facial asymmetry PSYCH: Normal mood, flat affect. confused at times SKIN: Warm, dry, normal turgor, no rashes or lesions noted Active Medications Generic Name Dose Route Start Last Admin Trade Name Freq PRN Reason Stop Dose Admin Dexamethasone 4 mg 02/03/16 18:00 02/05/16 05:49 Decadron - PO 4 mg Q6HPO MARGARITA Administration Diazepam 10 mg 02/02/16 20:06 02/05/16 05:49 Valium - PO 02/05/16 20:06 10 mg Q4H PRN Administration WITHDRAWAL(CONT SUBST) Enoxaparin Sodium 40 mg 02/03/16 14:45 02/04/16 09:37 Lovenox - SQ 40 mg DAILY MARGARITA Administration Methadone HCl 15 mg 02/01/16 10:00 Dolophine - PO 02/01/16 23:59 ONCE ONE Methadone HCl 15 mg 02/02/16 10:00 Dolophine - PO 02/02/16 23:59 ONCE ONE Morphine Sulfate 1 mg 01/30/16 09:27 02/02/16 08:23 Morphine Injection - IVPUSH 1 mg Q3H PRN Administration SEVERE PAIN Pantoprazole Sodium 40 mg 02/04/16 10:00 02/04/16 09:37 Protonix - PO 40 mg DAILY MARGARITA Administration CBC, BMP 02/01/16 07:00 02/01/16 07:00 MRI Brain 02/02/16: Motion artifacts observed on several sequences. Scatter vasogenic edema is observed in the infratentorial, supratentorial brain parenchyma. No evidence of herniation. Heterogeneous enhancing masses are observed in the lateral aspect of the right cerebellum measuring 20 mm x 19 mm, 10 mm. Enhancing lesions measuring 7.0 mm x 7.5 mm is observed in the region of the left middle cerebellar peduncle. Enhancing lesions are observed in the superior aspect of the vermis some in vicinity of the aqueduct. Abnormal enhancement is seen in the interpeduncular cistern. Several enhancing lesions are noted in the mid melva Several enhancing cortical lesions at the junction of the white and pappas matter are observed in the temporal lobes. Cortical based enhancing lesion in the left cingulate gyrus. Few small enhancing lesions are noted in the bilateral frontal lobes. . Periventricular chronic microangiopathic ischemic changes. Questionable punctate foci of restricted diffusion in bilateral frontal centrum semiovale. The major caliber vascular structures of [place] and peripheral dural venous sinuses show normal flow-void signal characteristics. No abnormality seen in the pontomedullary junction region. No evidence of Chiari malformation. MRI Brain 02/02/16 Impression. Infratentorial, supratentorial brain metastasis. CT head 01/29/16: New areas of subcortical decreased density without significant mass effect. Further imaging with contrast enhanced CT or MR is suggested. CXR 01/29/16: Interval increase opacity in the left the upper lobe, suprahilar region for which correlation with CT scan of the chest is needed for better comparison to prior CT scan of the chest dated 12/13/2015 CT chest 12/13/2015 : Abnormal CT scan findings highly suspicious for left upper lobe lung mass with satellite metastatic lesions and possible nodular metastasis to the left adrenal with metastatic bone disease. Correlation with PET CT scan recommended for further evaluation. ASSESSMENT/PLAN: 55 year old female with pmh of Stage 4 breast cancer with bone metastasis, right breast mastectomy, asthma, polysubstance abuse including alcohol and opiate, Hepatitis B presented to the ED with complaint of generalized weakness, pt was found to have new areas on decreased density on head CT Generalized weakness r/o brain mets vs infectious etiology UA negative, no wbc, CXR no acute findings CT head done neurology consulted MRI brain ordered to be done with Infratentorial, supratentorial brain metastasis. Hem/On consulted, case discussed with Dr Espinoza Radiation oncology consulted Dr Rodriguez, offered WBRT+-steroid vs palliative care On Decadron 4 mg PO q6h, Will switch to IV Protonix 40 po daily Metastatic Breast cancer Per Dr Espinoza pt has mets in spine and pelvis and multiple other bone, no need for further imaging at this point for staging. Pt may not tolerate chemotherapy , radiation therapy followed by palliative is a better option for now Per radiation oncology, the can do radiation followed by palliative or we can do palliative care without radiation palliative care consulted Asthma Stable right now Consider Duoneb prn Polysubstance abuse Dr Farah consulted on methadone taper FEN Fluid: none Electrolytes: Nutrition: regular diet DVT prophylaxis Lovenox Sq Dispostion: Awaiting family decision rt to chemo vs radiation therpary vs palliative/comfort care only Visit type - Emergency Visit Emergency Visit: Yes ED Registration Date: 01/29/16 Care time: The patient presented to the Emergency Department on the above date and was hospitalized for further evaluation of their emergent condition. - New Patient This patient is new to me today: No - Critical Care Critical Care patient: No
[2016-02-05] MEDS: PANTOPRAZOLE 40 MG TABLET (FP) PO SCH (09:43)
[2016-02-05] MEDS: ENOXAPARIN NA (PORCINE) 40 MG/0.4 ML DISP.SYRIN SQ SCH (09:44)
--- NOTE | 2016-02-05 15:02 | CONS ---
DATE OF CONSULTATION: 02/04/2016 REASON FOR CONSULTATION: Multiple brain metastases. REFERRING PHYSICIAN: Alo Espinoza M.D. 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 She received adjuvant AC chemotherapy. This was followed by delayed post mastectomy radiation therapy to the chest wall and supraclavicular nodes completed in 2014. In the same year, she had a metastatic recurrence in the bones, associated with pathologic fracture of the spine. She received palliative radiation therapy to the thoracolumbar spine and subsequently to the left pelvis and right hip at [facility]. She is followed by Dr. Espinoza, her Medical Oncologist, who has been treating her with palliative chemotherapy. She has been noncompliant with treatment. She was sent to the emergency room for progressive fatigue, lethargy and generalized weakness. CT head showed abnormal densities. MRI of the brain confirmed at least 10 supratentorial and infratentorial brain metastases associated with surrounding vasogenic edema with the largest metastasis measuring 2 cm. She was started on Decadron and Keppra. We were asked to evaluate for radiation therapy. The patient is minimally verbal and provides no additional history. The history is obtained primarily from the chart. PAST MEDICAL HISTORY: Asthma and hepatitis B virus, sickle cell trait, polysubstance abuse on methadone. ALLERGIES: No known drug allergies. CURRENT MEDICATIONS: Lovenox, decadron 4 mg p.o. every 6 hour, methadone, Protonix, Keppra. FAMILY HISTORY: Mother of breast cancer. SOCIAL HISTORY: Polysubstance abuse, history of incarceration. She is a daily smoker. REVIEW OF SYSTEMS: Unobtainable. PHYSICAL EXAMINATION: General: -[place] female in no acute distress lying in the hospital bed. Her partner/ is at the bedside. She is minimally conversant and answers yes, no questions. She is awake and alert, follows simple commands inconsistently. HEENT: There is a facial droop. Extraocular movements are intact. Breasts: No cervical adenopathy. No axillary adenopathy. Status post right mastectomy. Lungs: Clear. Abdomen: Soft. Extremities: No edema in the extremities. Neurologic: She moves all 4 extremities, but unable to cooperate with the exam. Musculoskeletal: No spine or CVA tenderness. RADIOLOGIC DATA: As noted above. PATHOLOGIC DATA: As noted above. LABORATORY DATA: WBC 8.0, hemoglobin 12.1, platelet 298,000. Electrolytes within normal limits. BUN 9, creatinine 0.5, calcium 9.1. Urine toxicology positive for opiates, amphetamine, benzodiazepine, marijuana. IMPRESSION: A 55-year-old woman with progressive metastatic breast cancer now with at least 10 intracranial metastases associated with edema. Steroid therapy has been initiated. Given her poor performance status, palliative care and hospice would be a reasonable option. The option of steroids with and without whole brain radiation therapy was discussed with her partner and brother by phone. Her brother understands that palliative whole brain radiation therapy would offer modest survival benefit in addition to providing local control, delaying local progression and reducing risk of further neurologic compromise and neurologic . PLAN: We shall await their decision on whether treatment is desired. Continue steroids and proton pump inhibitor. Continue neurologic monitoring and neurology follow up. Thank you for asking me to see this patient. CANDICE NAVARRETE M.D. LORA/[id number] MTDD
--- NOTE | 2016-02-05 17:50 | PN ---
Teaching Attending Note Name of Resident: Jorge Jolly ATTENDING PHYSICIAN STATEMENT I saw and evaluated the patient. I reviewed the resident's note and discussed the case with the resident. I agree with the resident's findings and plan as documented. SUBJECTIVE: no fever or chills, minimal hx obtained. per family she is a little better today . was agitated this am , got Diazepam OBJECTIVE: NAD, awake today but minimally cooperative CV: RRR lUngs : CTAB Abd :soft, NT, ND , nl BS Ext : no edema on legs NEuro : very limited. no facial droop, equal round pupils , unable to assess sensation or strength. reflexes 1+ biceps and knee jerk ASSESSMENT AND PLAN: 55 y/o lady with h/o drug abuse , met breast cancer to spine and pelvis who presented with generalized weakness. 1- Breast cancer with brain mets on MRI - Cont decadron . per neuro , no need for Keppra - Not a candidate for Chemo - spoke to family again today . explained poor prognosis . appreciate Palliative care Help in this matter 2- Opioid abuse : finished Methadone taper. 3- Benzo abuse: Diazepam PRN . no signs of withdrawal but has some agitation 4- AMS: likely form progression of her brain dz. ALso on benzos Prognosis : poor Code : now full code . Palliative care help appreciated. Goals of care : Hospice Vs treatment pending family decision
[2016-02-05] MEDS ORDERED: oxyCODONE HCL 5 MG TABLET PO PRN (19:47)
[2016-02-06] MEDS: DEXAMETHASONE 4 MG TABLET (FP) PO SCH ×5 (01:02→23:30)
--- NOTE | 2016-02-06 07:35 | PN ---
Physical Exam: SUBJECTIVE: Patient seen and examined Per Palliative care note pt and family prefers comfort care and palliative care as opposed to aggressive treatment. Consult placed to [facility] Pt is awake, alert but slow to respond pt follows simple directions this morning sometimes /Boyfriend at the bedside No s/s of acute distress NO fever or chills, no focal weakness Moves all ext OBJECTIVE: Vital Signs Period Temp Pulse Resp BP Sys/Maciel Pulse Ox Last 24 Hr 97.0 F-99.6 F 80-108 18-20 136-160/70-112 99-99 GENERAL: The patient is awake, alert, in no acute distress. HEAD: Normal with no signs of trauma. EYES: PERRL, extraocular movements intact, sclera anicteric, conjunctiva clear. No ptosis. no teeth ENT: Ears normal, nares patent, oropharynx clear without exudates, moist mucous membranes. No teeth NECK: Trachea midline, full range of motion, supple. LUNGS: Breath sounds equal, diminished to auscultation bilaterally, no wheezes , no crackles, no accessory muscle use. HEART: Regular rate and rhythm, S1, S2 without murmur, rub or gallop. ABDOMEN: Soft, nontender, nondistended, normoactive bowel sounds, no guarding, no rebound, no hepatosplenomegaly, no masses. EXTREMITIES: 2+ pulses, warm, well-perfused, no edema. NEUROLOGICAL: slow speech, strength 4/5 in all ext. unable to stand and walk to due to gen weakness. No facial asymmetry PSYCH: Normal mood, flat affect. confused at times SKIN: Warm, dry, normal turgor, no rashes or lesions noted Active Medications Generic Name Dose Route Start Last Admin Trade Name Frankq PRN Reason Stop Dose Admin Dexamethasone 4 mg 02/03/16 18:00 02/06/16 06:18 Decadron - PO 4 mg Q6HPO MARGARITA Administration Enoxaparin Sodium 40 mg 02/03/16 14:45 02/05/16 09:44 Lovenox - SQ 40 mg DAILY MARGARITA Administration Methadone HCl 15 mg 02/01/16 10:00 Dolophine - PO 02/01/16 23:59 ONCE ONE Methadone HCl 15 mg 02/02/16 10:00 Dolophine - PO 02/02/16 23:59 ONCE ONE Morphine Sulfate 1 mg 01/30/16 09:27 02/02/16 08:23 Morphine Injection - IVPUSH 1 mg Q3H PRN Administration SEVERE PAIN Oxycodone HCl 10 mg 02/05/16 19:47 02/05/16 20:03 Roxicodone - PO 10 mg Q4H PRN Administration PAIN Pantoprazole Sodium 40 mg 02/04/16 10:00 02/05/16 09:43 Protonix - PO 40 mg DAILY MARGARITA Administration CBC, BMP 02/01/16 07:00 02/01/16 07:00 ASSESSMENT/PLAN: MRI Brain 02/02/16: Motion artifacts observed on several sequences. Scatter vasogenic edema is observed in the infratentorial, supratentorial brain parenchyma. No evidence of herniation. Heterogeneous enhancing masses are observed in the lateral aspect of the right cerebellum measuring 20 mm x 19 mm, 10 mm. Enhancing lesions measuring 7.0 mm x 7.5 mm is observed in the region of the left middle cerebellar peduncle. Enhancing lesions are observed in the superior aspect of the vermis some in vicinity of the aqueduct. Abnormal enhancement is seen in the interpeduncular cistern. Several enhancing lesions are noted in the mid melva Several enhancing cortical lesions at the junction of the white and pappas matter are observed in the temporal lobes. Cortical based enhancing lesion in the left cingulate gyrus. Few small enhancing lesions are noted in the bilateral frontal lobes. . Periventricular chronic microangiopathic ischemic changes. Questionable punctate foci of restricted diffusion in bilateral frontal centrum semiovale. The major caliber vascular structures of telida of [place] and peripheral dural venous sinuses show normal flow-void signal characteristics. No abnormality seen in the pontomedullary junction region. No evidence of Chiari malformation. MRI Brain 02/02/16 Impression. Infratentorial, supratentorial brain metastasis. CT head 01/29/16: New areas of subcortical decreased density without significant mass effect. Further imaging with contrast enhanced CT or MR is suggested. CXR 01/29/16: Interval increase opacity in the left the upper lobe, suprahilar region for which correlation with CT scan of the chest is needed for better comparison to prior CT scan of the chest dated 12/13/2015 CT chest 12/13/2015 : Abnormal CT scan findings highly suspicious for left upper lobe lung mass with satellite metastatic lesions and possible nodular metastasis to the left adrenal with metastatic bone disease. Correlation with PET CT scan recommended for further evaluation. ASSESSMENT/PLAN: 55 year old female with pmh of Stage 4 breast cancer with bone metastasis, right breast mastectomy, asthma, polysubstance abuse including alcohol and opiate, Hepatitis B presented to the ED with complaint of generalized weakness, pt was found to have new areas on decreased density on head CT Generalized weakness r/o brain mets from likely from Metastatic Breast cancer UA negative, no wbc, CXR no acute findings CT head done neurology consulted MRI brain ordered to be done with Infratentorial, supratentorial brain metastasis. Hem/On consulted, case discussed with Dr Espinoza Radiation oncology consulted Dr Rodriguez, offered WBRT+-steroid vs palliative care On Decadron 4 mg PO q6h Protonix [address] Espinoza pt has mets in spine and pelvis and multiple other bone, no need for further imaging at this point for staging. Pt may not tolerate chemotherapy , radiation therapy followed by palliative is a better option for now Per radiation oncology, the can do radiation followed by palliative or we can do palliative care without radiation palliative care consulted Asthma Stable right now Consider Duoneb prn Polysubstance abuse Dr Farah consulted Completed methadone taper FEN Fluid: none Electrolytes: Nutrition: regular diet DVT prophylaxis Lovenox Sq Dispostion: Awaiting family decision rt to chemo vs radiation therpary vs palliative/comfort care only Visit type - Emergency Visit Emergency Visit: Yes ED Registration Date: 01/29/16 Care time: The patient presented to the Emergency Department on the above date and was hospitalized for further evaluation of their emergent condition. - New Patient This patient is new to me today: No - Critical Care Critical Care patient: No
[2016-02-06] MEDS: PANTOPRAZOLE 40 MG TABLET (FP) PO SCH (10:13)
[2016-02-06] MEDS: ENOXAPARIN NA (PORCINE) 40 MG/0.4 ML DISP.SYRIN SQ SCH (10:14)
--- NOTE | 2016-02-06 13:23 | PN ---
Teaching Attending Note Name of Resident: Jorge Jolly ATTENDING PHYSICIAN STATEMENT I saw and evaluated the patient. I reviewed the resident's note and discussed the case with the resident. I agree with the resident's findings and plan as documented. SUBJECTIVE: Patient is lying in bed, no acute distress, but looks lethargic , answers to questions. OBJECTIVE: Vital Signs Temperature 98.1 F 02/06/16 09:22 Pulse Rate 109 H 02/06/16 09:22 Respiratory Rate 20 02/06/16 09:22 Blood Pressure 155/98 02/06/16 09:22 O2 Sat by Pulse Oximetry (%) 99 02/06/16 09:00 GENERAL: The patient is awake, alert, and oriented, in no acute distress. HEAD: Normal with no signs of trauma. EYES: PERRL, extraocular movements intact, sclera anicteric, conjunctiva clear. ENT: Ears normal, oropharynx clear without exudates, moist mucous membranes. No teeth NECK: Trachea midline, full range of motion, supple. LUNGS: Breath sounds equal, diminshed to auscultation bilaterally, no wheezes, no crackles, no accessory muscle use. HEART: Regular rate and rhythm, S1, S2 positive, no rub or gallop. ABDOMEN: Soft, nontender, nondistended, normoactive bowel sounds, no guarding, no rebound, no hepatosplenomegaly, no masses. EXTREMITIES: 2+ pulses, warm, well-perfused, no edema. NEUROLOGICAL: slow speech, strength 4/5 in all ext. gait not observed. PSYCH: Normal mood, flat affect. confused at times SKIN: Warm, dry, normal turgor, no rashes or lesions noted CBCD WBC 8.0 K/mm3 (4.0-10.0) D 02/01/16 07:00 RBC 4.85 M/mm3 (3.60-5.2) 02/01/16 07:00 Hgb 12.1 GM/dL (10.7-15.3) 02/01/16 07:00 Hct 37.1 % (32.4-45.2) 02/01/16 07:00 MCV 76.5 fl (80-96) L 02/01/16 07:00 MCHC 32.6 g/dl (32.0-36.0) 02/01/16 07:00 RDW 19.2 % (11.6-15.6) H 02/01/16 07:00 Plt Count 298 K/MM3 (134-434) 02/01/16 07:00 MPV 10.2 fl (7.5-11.1) 02/01/16 07:00 CMP Sodium 137 mmol/L (136-145) 02/01/16 07:00 Potassium 3.5 mmol/L (3.5-5.1) 02/01/16 07:00 Chloride 100 mmol/L (98-107) 02/01/16 07:00 Carbon Dioxide 25 mmol/L (21-32) 02/01/16 07:00 Anion Gap 12 (8-16) 02/01/16 07:00 BUN 9 mg/dL (7-18) 02/01/16 07:00 Creatinine 0.5 mg/dL (0.55-1.02) L 02/01/16 07:00 Creat Clearance w eGFR > 60 (>60) 01/29/16 12:51 Random Glucose 98 mg/dL (74-106) 02/01/16 07:00 Calcium 9.1 mg/dL (8.5-10.1) 02/01/16 07:00 Total Bilirubin 0.7 mg/dL (0.2-1.0) 01/29/16 12:51 AST 55 U/L (15-37) H D 01/29/16 12:51 ALT 13 U/L (12-78) 01/29/16 12:51 Alkaline Phosphatase 112 U/L (45-117) 01/29/16 12:51 Total Protein 6.4 g/dl (6.4-8.2) 01/29/16 12:51 Albumin 2.9 g/dl (3.4-5.0) L 01/29/16 12:51 Current Medications Generic Name Dose Route Start Last Admin Trade Name Freq PRN Reason Stop Dose Admin Dexamethasone 4 mg 02/03/16 18:00 02/06/16 12:23 Decadron - PO 4 mg Q6HPO MARGARITA Administration Enoxaparin Sodium 40 mg 02/03/16 14:45 02/06/16 10:14 Lovenox - SQ 40 mg DAILY MARGARITA Administration Methadone HCl 15 mg 02/01/16 10:00 Dolophine - PO 02/01/16 23:59 ONCE ONE Methadone HCl 15 mg 02/02/16 10:00 Dolophine - PO 02/02/16 23:59 ONCE ONE Morphine Sulfate 1 mg 01/30/16 09:27 02/02/16 08:23 Morphine Injection - IVPUSH 1 mg Q3H PRN Administration SEVERE PAIN Oxycodone HCl 10 mg 02/05/16 19:47 02/05/16 20:03 Roxicodone - PO 10 mg Q4H PRN Administration PAIN Pantoprazole Sodium 40 mg 02/04/16 10:00 02/06/16 10:13 Protonix - PO 40 mg DAILY MARGARITA Administration ASSESSMENT AND PLAN: This is a 55-year-old woman with a history of stage 4 breast cancer with bone metastases, right mastectomy, opiate and alcohol abuse, hepatitis B, sickle cell trait and asthma who presented with weakness and was found to have possible brain metastases on head CT. # Acute Generalized weakness ; Head CT shows multiple hypodense areas without mass effect, MRI of brain ordered, result reviewed: positive for brain mets infratentorial and supratentorial brain mets. Will get her oncologist to see her. Neurologist on the case Urine screen positive for opiates, amphetamines,benzos,marijuna ; Valium for withdrawel as per [facility] consult Dr.Soliman odom. Patient is looking better than yesterday. # Stage 4 breast cancer with bone and possible brain metastases MRI of brain to evaluate for metastases Will hold steroids pending MRI as there is no mass effect seen on CT, Palliative care consult # Asthma Stable # Opioid dependence Started on Methadone taper as per DVT Px: SCds
[2016-02-07] MEDS: DEXAMETHASONE 4 MG TABLET (FP) PO SCH ×4 (06:25→23:16)
[2016-02-07] MEDS: ENOXAPARIN NA (PORCINE) 40 MG/0.4 ML DISP.SYRIN SQ SCH (10:06)
[2016-02-07] MEDS: PANTOPRAZOLE 40 MG TABLET (FP) PO SCH (10:06)
--- NOTE | 2016-02-07 10:19 | PN ---
Progress Note (short form) - Note Progress Note: Patient continues to stare at you and not eating , and is non verbal most of the time. Temperature 97.9 F 02/07/16 08:00 Pulse Rate 112 H 02/07/16 08:00 Respiratory Rate 18 02/07/16 08:00 Blood Pressure 162/111 02/07/16 08:00 O2 Sat by Pulse Oximetry (%) 99 02/06/16 21:00 GENERAL: The patient is awake, alert, and oriented, in no acute distress. HEAD: Normal with no signs of trauma. EYES: PERRL, extraocular movements intact, sclera anicteric, conjunctiva clear. ENT: Ears normal, oropharynx clear without exudates, moist mucous membranes. No teeth NECK: Trachea midline, full range of motion, supple. LUNGS: Breath sounds equal, diminshed to auscultation bilaterally, no wheezes, no crackles, no accessory muscle use. HEART: Regular rate and rhythm, S1, S2 positive, no rub or gallop. ABDOMEN: Soft, nontender, nondistended, normoactive bowel sounds, no guarding, no rebound, no hepatosplenomegaly, no masses. EXTREMITIES: 2+ pulses, warm, well-perfused, no edema. NEUROLOGICAL: slow speech, strength 4/5 in all ext. gait not observed. PSYCH: Normal mood, flat affect. confused at times SKIN: Warm, dry, normal turgor, no rashes or lesions noted CBCD WBC 8.0 K/mm3 (4.0-10.0) D 02/01/16 07:00 RBC 4.85 M/mm3 (3.60-5.2) 02/01/16 07:00 Hgb 12.1 GM/dL (10.7-15.3) 02/01/16 07:00 Hct 37.1 % (32.4-45.2) 02/01/16 07:00 MCV 76.5 fl (80-96) L 02/01/16 07:00 MCHC 32.6 g/dl (32.0-36.0) 02/01/16 07:00 RDW 19.2 % (11.6-15.6) H 02/01/16 07:00 Plt Count 298 K/MM3 (134-434) 02/01/16 07:00 MPV 10.2 fl (7.5-11.1) 02/01/16 07:00 CMP Sodium 137 mmol/L (136-145) 02/01/16 07:00 Potassium 3.5 mmol/L (3.5-5.1) 02/01/16 07:00 Chloride 100 mmol/L (98-107) 02/01/16 07:00 Carbon Dioxide 25 mmol/L (21-32) 02/01/16 07:00 Anion Gap 12 (8-16) 02/01/16 07:00 BUN 9 mg/dL (7-18) 02/01/16 07:00 Creatinine 0.5 mg/dL (0.55-1.02) L 02/01/16 07:00 Creat Clearance w eGFR > 60 (>60) 01/29/16 12:51 Random Glucose 98 mg/dL (74-106) 02/01/16 07:00 Calcium 9.1 mg/dL (8.5-10.1) 02/01/16 07:00 Total Bilirubin 0.7 mg/dL (0.2-1.0) 01/29/16 12:51 AST 55 U/L (15-37) H D 01/29/16 12:51 ALT 13 U/L (12-78) 01/29/16 12:51 Alkaline Phosphatase 112 U/L (45-117) 01/29/16 12:51 Total Protein 6.4 g/dl (6.4-8.2) 01/29/16 12:51 Albumin 2.9 g/dl (3.4-5.0) L 01/29/16 12:51 Current Medications Generic Name Dose Route Start Last Admin Trade Name Freq PRN Reason Stop Dose Admin Dexamethasone 4 mg 02/03/16 18:00 02/07/16 06:25 Decadron - PO 4 mg Q6HPO MARGARITA Administration Enoxaparin Sodium 40 mg 02/03/16 14:45 02/07/16 10:06 Lovenox - SQ 40 mg DAILY MARGARITA Administration Methadone HCl 15 mg 02/01/16 10:00 Dolophine - PO 02/01/16 23:59 ONCE ONE Methadone HCl 15 mg 02/02/16 10:00 Dolophine - PO 02/02/16 23:59 ONCE ONE Morphine Sulfate 1 mg 01/30/16 09:27 02/02/16 08:23 Morphine Injection - IVPUSH 1 mg Q3H PRN Administration SEVERE PAIN Oxycodone HCl 10 mg 02/05/16 19:47 02/05/16 20:03 Roxicodone - PO 10 mg Q4H PRN Administration PAIN Pantoprazole Sodium 40 mg 02/04/16 10:00 02/07/16 10:06 Protonix - PO 40 mg DAILY MARGARITA Administration Medication Instructions Recorded Pregabalin [Lyrica] 50 mg PO BID 12/12/15 A/P: This is a 55-year-old woman with a history of stage 4 breast cancer with bone metastases, right mastectomy, opiate and alcohol abuse, hepatitis B, sickle cell trait and asthma who presented with weakness and was found to have possible brain metastases on head CT. #Elevated BP will start him on Norvasc 5mg po daily, will monitor # Acute Generalized weakness ; Head CT shows multiple hypodense areas without mass effect, MRI of brain ordered, result reviewed: positive for brain mets infratentorial and supratentorial brain mets. Will get her oncologist to see her. follow oncology consult and recommendation regarding radiotherapy and chemotherapy. She doesn't seem to be a surgical case as the mets. are multiple bilaterally. # Stage 4 breast cancer with bone and possible brain metastases MRI of brain to evaluate for metastases Will hold steroids pending MRI as there is no mass effect seen on CT, Palliative care consult # Asthma Stable # Opioid dependence Started on Methadone taper as per DVT Px: SCds Visit type - Emergency Visit Emergency Visit: Yes ED Registration Date: 01/29/16 Care time: The patient presented to the Emergency Department on the above date and was hospitalized for further evaluation of their emergent condition. - New Patient This patient is new to me today: No - Critical Care Critical Care patient: No
[2016-02-07] MEDS: amLODIPine BESYLATE 5 MG TABLET (FP) PO SCH (16:11)
[2016-02-08] MEDS: DEXAMETHASONE 4 MG TABLET (FP) PO SCH ×3 (06:26→19:08)
[2016-02-08] MEDS: PANTOPRAZOLE 40 MG TABLET (FP) PO SCH (10:51)
[2016-02-08] MEDS: amLODIPine BESYLATE 5 MG TABLET (FP) PO SCH (10:51)
[2016-02-08] MEDS: ENOXAPARIN NA (PORCINE) 40 MG/0.4 ML DISP.SYRIN SQ SCH (10:51)
[2016-02-08] MEDS ORDERED: amLODIPine BESYLATE 5 MG TABLET (FP) PO ONE (13:15)
--- NOTE | 2016-02-08 13:16 | PN ---
Progress Note (short form) - Note Progress Note: Subjective: unable to obtain hx . per she was awake since 10 am -12. then fell asleep . she ate a little this am with help Objective: Vital Signs: Last Vital Signs Temp Pulse Resp BP Pulse Ox 97.3 F L 117 H 24 155/109 97 02/08/16 09:00 02/08/16 09:00 02/08/16 09:00 02/08/16 09:00 02/08/16 09:00 PE: NAD, arousable . L eye with erythematous conjunctiva in the lower part only . CV: RRR lUngs : decreased breath sounds at bases Abd :soft, NT, ND , nl BS Ext : no edema on legs NEuro : very limited. no facial droop, equal round pupils , . reflexes 2 + biceps and 1+ knee jerk . not cooperative with strength exam ASSESSMENT AND PLAN: 55 y/o lady with h/o drug abuse , met breast cancer to spine and pelvis who presented with generalized weakness. 1- Breast cancer with brain mets on MRI - decision for treatment vs [facility] placement , is still pending family discussion with Dr. Espinoza. - appreciate Palliative care help. It seems like family is leaning towards comfort and [facility] placement . - cont steroids - dc oxycodone ordered on due to lethargy already 2- Opioid abuse : finished Methadone taper. 3- Benzo abuse: no signs of withdrawal 4- order tears for L eye due as eye is not closing appropriately causing irritationin conjunctiva. There is no signs of infection as just the lower part is erythematous not the whole conjunctiva 5- uncontrolled HTN: give extra dos eof norvasc now , then increase AM dose Dispo : likely family will decide on [place] measures Visit type - Emergency Visit Emergency Visit: Yes ED Registration Date: 01/29/16 Care time: The patient presented to the Emergency Department on the above date and was hospitalized for further evaluation of their emergent condition. - New Patient This patient is new to me today: No - Critical Care Critical Care patient: No
[2016-02-09] MEDS: NYSTATIN 500,000 UNITS/5 ML SUSPENSION PO SCH ×4 (00:45→17:44)
[2016-02-09] MEDS: DEXAMETHASONE 4 MG TABLET (FP) PO SCH ×4 (00:45→17:44)
[2016-02-09] MEDS: ARTIFICIAL TEARS (POLYVINYL ALCOHOL 1.4%) OPTH DROPS OU PRN ×2 (09:35→17:50)
[2016-02-09] MEDS: PANTOPRAZOLE 40 MG TABLET (FP) PO SCH (09:36)
[2016-02-09] MEDS: amLODIPine BESYLATE 10 MG TABLET (FP) PO SCH (09:36)
[2016-02-09] MEDS: ENOXAPARIN NA (PORCINE) 40 MG/0.4 ML DISP.SYRIN SQ SCH (09:36)
--- NOTE | 2016-02-09 14:11 | PN ---
Progress Note, Physician History of Present Illness: 55 yo with documented metastatic cancer and multiple metastatic lesion in the brain. Today resting quietly opened her eyes to the examiner, however detailed exam deferred to allow her to rest. - Current Medication List Current Medications: Active Medications Amlodipine Besylate (Norvasc -) 10 mg PO DAILY [facility] Last Admin: 02/09/16 09:36 Dose: 10 mg Artificial Tears (Artificial Tears) 1 drop OU QID PRN PRN Reason: DRY EYES Last Admin: 02/09/16 09:35 Dose: 1 drop Dexamethasone (Decadron -) 4 mg PO Q6HPO [facility] Last Admin: 02/09/16 14:04 Dose: 4 mg Enoxaparin Sodium (Lovenox -) 40 mg SQ DAILY [facility] Last Admin: 02/09/16 09:36 Dose: 40 mg Methadone HCl (Dolophine -) 15 mg PO ONCE ONE Stop: 02/01/16 23:59 Methadone HCl (Dolophine -) 15 mg PO ONCE ONE Stop: 02/02/16 23:59 Nystatin (Nystatin Oral Suspension -) 500,000 units PO Q6HPO [facility] Last Admin: 02/09/16 14:05 Dose: 500,000 units Pantoprazole Sodium (Protonix -) 40 mg PO DAILY [facility] Last Admin: 02/09/16 09:36 Dose: 40 mg - Objective Vital Signs: Vital Signs Temperature 98.1 F 02/09/16 06:00 Pulse Rate 104 H 02/09/16 06:00 Respiratory Rate 22 02/09/16 06:00 Blood Pressure 153/96 02/09/16 06:00 O2 Sat by Pulse Oximetry (%) 98 02/08/16 21:00 Constitutional: Yes: Calm Cardiovascular: Yes: Regular Rate and Rhythm Respiratory: Yes: Regular Gastrointestinal: Yes: Soft Neurological: Yes: Alert (sedated with pain meds), Cran Nerves II-XII Intact. No: Dysarthria, Facial Droop, Loss of Sensation, Weakness Labs: CBC, BMP 02/01/16 07:00 02/01/16 07:00 Assessment/Plan Metastatic multi-lesion brain tumors P Continue Decadron and Cancer treatment managed by the oncology team.
--- NOTE | 2016-02-09 18:36 | PN ---
Teaching Attending Note Name of Resident: Jorge Jolly ATTENDING PHYSICIAN STATEMENT I saw and evaluated the patient. I reviewed the resident's note and discussed the case with the resident. I agree with the resident's findings and plan as documented. SUBJECTIVE: unable to obtain hx OBJECTIVE: NAD, arousable . L eye with erythematous conjunctiva in the lower part only . CV: RRR lUngs: decreased breath sounds at bases Ext : no edema on legs NEuro : very limited. no facial droop, equal round pupils , . reflexes 2 + biceps and 1+ knee jerk . not cooperative with strength exam ASSESSMENT AND PLAN: 55 y/o lady with h/o drug abuse , met breast cancer to spine and pelvis who presented with generalized weakness. 1- Breast cancer with brain mets on MRI - cont steroids . - [facility] placement is pending 2- Opioid abuse : finished Methadone taper. 3- Benzo abuse: no signs of withdrawal 4- cont artificial tears . add tear ointment for night time 5- uncontrolled HTN: cont increased norvs Dispo : D/W palliative team yesterday. [facility] declined pt due to insurance. search for other options for hospice placement
--- NOTE | 2016-02-09 19:32 | PN ---
Addendum entered and electronically signed by Joreg Jolly RES 02/09/16 21: 39: GENERAL: The patient is sleepy, in no acute distress. HEAD: Normal with no signs of trauma. LUNGS: Breath sounds equal, diminished to auscultation bilaterally, no wheezes , no crackles, no accessory muscle use. HEART: Regular rate and rhythm, S1, S2 without murmur, rub or gallop. ABDOMEN: Soft, nontender, nondistended, normoactive bowel sounds, no guarding, no rebound, no hepatosplenomegaly, no masses. EXTREMITIES: 2+ pulses, warm, well-perfused, no edema. NEUROLOGICAL: slow speech, strength 4/5 in all ext. unable to stand and walk to due to gen weakness. No facial asymmetry PSYCH: Normal mood, flat affect. confused at times SKIN: Warm, dry, normal turgor, no rashes or lesions noted Original Note: Physical Exam: SUBJECTIVE: Patient seen and examined Pt is sleepy and slow Barely respond to verbal stimuli No fever or chills No nausea, vomiting No pain OBJECTIVE: Vital Signs Period Temp Pulse Resp BP Sys/Maciel Pulse Ox Last 24 Hr 97.3 F-98.1 F 104-122 20-22 151-157/96-108 98-98 Active Medications Generic Name Dose Route Start Last Admin Trade Name Freq PRN Reason Stop Dose Admin Amlodipine Besylate 10 mg 02/09/16 10:00 02/09/16 09:36 Norvasc - PO 10 mg DAILY MARGARITA Administration Artificial Tears 1 drop 02/08/16 20:27 02/09/16 17:50 Artificial Tears OU 1 drop QID PRN Administration DRY EYES Dexamethasone 4 mg 02/03/16 18:00 02/09/16 17:44 Decadron - PO 4 mg Q6HPO MARGARITA Administration Enoxaparin Sodium 40 mg 02/03/16 14:45 02/09/16 09:36 Lovenox - SQ 40 mg DAILY MARGARITA Administration Methadone HCl 15 mg 02/01/16 10:00 Dolophine - PO 02/01/16 23:59 ONCE ONE Methadone HCl 15 mg 02/02/16 10:00 Dolophine - PO 02/02/16 23:59 ONCE ONE Nystatin 500,000 units 02/09/16 00:00 02/09/16 17:44 Nystatin Oral Suspension - PO 500,000 units Q6HPO MARGARITA Administration Pantoprazole Sodium 40 mg 02/04/16 10:00 02/09/16 09:36 Protonix - PO 40 mg DAILY MARGARITA Administration CBC, BMP 02/01/16 07:00 02/01/16 07:00 MRI Brain 02/02/16: Motion artifacts observed on several sequences. Scatter vasogenic edema is observed in the infratentorial, supratentorial brain parenchyma. No evidence of herniation. Heterogeneous enhancing masses are observed in the lateral aspect of the right cerebellum measuring 20 mm x 19 mm, 10 mm. Enhancing lesions measuring 7.0 mm x 7.5 mm is observed in the region of the left middle cerebellar peduncle. Enhancing lesions are observed in the superior aspect of the vermis some in vicinity of the aqueduct. Abnormal enhancement is seen in the interpeduncular cistern. Several enhancing lesions are noted in the mid melva Several enhancing cortical lesions at the junction of the white and pappas matter are observed in the temporal lobes. Cortical based enhancing lesion in the left cingulate gyrus. Few small enhancing lesions are noted in the bilateral frontal lobes. . Periventricular chronic microangiopathic ischemic changes. Questionable punctate foci of restricted diffusion in bilateral frontal centrum semiovale. The major caliber vascular structures of [place] and peripheral dural venous sinuses show normal flow-void signal characteristics. No abnormality seen in the pontomedullary junction region. No evidence of Chiari malformation. MRI Brain 02/02/16 Impression. Infratentorial, supratentorial brain metastasis. CT head 01/29/16: New areas of subcortical decreased density without significant mass effect. Further imaging with contrast enhanced CT or MR is suggested. CXR 01/29/16: Interval increase opacity in the left the upper lobe, suprahilar region for which correlation with CT scan of the chest is needed for better comparison to prior CT scan of the chest dated 12/13/2015 CT chest 12/13/2015 : Abnormal CT scan findings highly suspicious for left upper lobe lung mass with satellite metastatic lesions and possible nodular metastasis to the left adrenal with metastatic bone disease. Correlation with PET CT scan recommended for further evaluation. ASSESSMENT/PLAN: 55 year old female with pmh of Stage 4 breast cancer with bone metastasis, right breast mastectomy, asthma, polysubstance abuse including alcohol and opiate, Hepatitis B presented to the ED with complaint of generalized weakness, pt was found to have new areas on decreased density on head CT Generalized weakness r/o brain mets from likely from Metastatic Breast cancer UA negative, no wbc, CXR no acute findings CT head done neurology consulted MRI brain ordered to be done with Infratentorial, supratentorial brain metastasis. Hem/On consulted, case discussed with Dr Espinoza Radiation oncology consulted Dr Rodriguez, offered WBRT+-steroid vs palliative care On Decadron 4 mg PO q6h Protonix [address] Espinoza pt has mets in spine and pelvis and multiple other bone, no need for further imaging at this point for staging. Pt may not tolerate chemotherapy , radiation therapy followed by palliative is a better option for now Per radiation oncology, the can do radiation followed by palliative or we can do palliative care without radiation palliative care consulted Family elected palliative care Pending placement for hospice, was refused by [facility] Asthma Stable right now Consider Duoneb prn Polysubstance abuse Dr Farah consulted Completed methadone taper FEN Fluid: none Electrolytes: no abnormalities in last chemistry Nutrition: regular diet DVT prophylaxis Lovenox Sq Dispostion: DNR/DNI. Pending placement for hospice Visit type - Emergency Visit Emergency Visit: Yes ED Registration Date: 01/29/16 Care time: The patient presented to the Emergency Department on the above date and was hospitalized for further evaluation of their emergent condition. - New Patient This patient is new to me today: No - Critical Care Critical Care patient: No
[2016-02-10] MEDS: NYSTATIN 500,000 UNITS/5 ML SUSPENSION PO SCH ×4 (00:30→17:45)
[2016-02-10] MEDS: DEXAMETHASONE 4 MG TABLET (FP) PO SCH ×4 (00:30→17:45)
--- NOTE | 2016-02-10 10:06 | PN ---
Physical Exam: SUBJECTIVE: Patient seen and examined Pt is sleeping this morning No event overnight OBJECTIVE: Vital Signs Period Temp Pulse Resp BP Sys/Maciel Pulse Ox Last 24 Hr 97.3 F-98.2 F 105-122 20-20 152-157/102-109 98-98 GENERAL: The patient is sleepy, in no acute distress. HEAD: Normal with no signs of trauma. LUNGS: Breath sounds equal, diminished to auscultation bilaterally, no wheezes , no crackles, no accessory muscle use. HEART: Regular rate and rhythm, S1, S2 without murmur, rub or gallop. ABDOMEN: Soft, nontender, nondistended, normoactive bowel sounds, no guarding, no rebound, no hepatosplenomegaly, no masses. EXTREMITIES: 2+ pulses, warm, well-perfused, no edema. NEUROLOGICAL: slow speech, strength 4/5 in all ext. unable to stand and walk to due to gen weakness. No facial asymmetry PSYCH: Normal mood, flat affect. confused at times SKIN: Warm, dry, normal turgor, no rashes or lesions noted Active Medications Generic Name Dose Route Start Last Admin Trade Name Freq PRN Reason Stop Dose Admin Amlodipine Besylate 10 mg 02/09/16 10:00 02/09/16 09:36 Norvasc - PO 10 mg DAILY MARGARITA Administration Artificial Tears 1 drop 02/08/16 20:27 02/09/16 17:50 Artificial Tears OU 1 drop QID PRN Administration DRY EYES Dexamethasone 4 mg 02/03/16 18:00 02/10/16 05:35 Decadron - PO 4 mg Q6HPO MARGARITA Administration Enoxaparin Sodium 40 mg 02/03/16 14:45 02/09/16 09:36 Lovenox - SQ 40 mg DAILY MARGARITA Administration Methadone HCl 15 mg 02/01/16 10:00 Dolophine - PO 02/01/16 23:59 ONCE ONE Methadone HCl 15 mg 02/02/16 10:00 Dolophine - PO 02/02/16 23:59 ONCE ONE Nystatin 500,000 units 02/09/16 00:00 02/10/16 05:35 Nystatin Oral Suspension - PO 500,000 units Q6HPO MARGARITA Administration Pantoprazole Sodium 40 mg 02/04/16 10:00 02/09/16 09:36 Protonix - PO 40 mg DAILY MARGARITA Administration ASSESSMENT/PLAN: MRI Brain 02/02/16: Motion artifacts observed on several sequences. Scatter vasogenic edema is observed in the infratentorial, supratentorial brain parenchyma. No evidence of herniation. Heterogeneous enhancing masses are observed in the lateral aspect of the right cerebellum measuring 20 mm x 19 mm, 10 mm. Enhancing lesions measuring 7.0 mm x 7.5 mm is observed in the region of the left middle cerebellar peduncle. Enhancing lesions are observed in the superior aspect of the vermis some in vicinity of the aqueduct. Abnormal enhancement is seen in the interpeduncular cistern. Several enhancing lesions are noted in the mid melva Several enhancing cortical lesions at the junction of the white and pappas matter are observed in the temporal lobes. Cortical based enhancing lesion in the left cingulate gyrus. Few small enhancing lesions are noted in the bilateral frontal lobes. . Periventricular chronic microangiopathic ischemic changes. Questionable punctate foci of restricted diffusion in bilateral frontal centrum semiovale. The major caliber vascular structures of [place] and peripheral dural venous sinuses show normal flow-void signal characteristics. No abnormality seen in the pontomedullary junction region. No evidence of Chiari malformation. MRI Brain 02/02/16 Impression. Infratentorial, supratentorial brain metastasis. CT head 01/29/16: New areas of subcortical decreased density without significant mass effect. Further imaging with contrast enhanced CT or MR is suggested. CXR 01/29/16: Interval increase opacity in the left the upper lobe, suprahilar region for which correlation with CT scan of the chest is needed for better comparison to prior CT scan of the chest dated 12/13/2015 CT chest 12/13/2015 : Abnormal CT scan findings highly suspicious for left upper lobe lung mass with satellite metastatic lesions and possible nodular metastasis to the left adrenal with metastatic bone disease. Correlation with PET CT scan recommended for further evaluation. ASSESSMENT/PLAN: 55 year old female with pmh of Stage 4 breast cancer with bone metastasis, right breast mastectomy, asthma, polysubstance abuse including alcohol and opiate, Hepatitis B presented to the ED with complaint of generalized weakness, pt was found to have new areas on decreased density on head CT Generalized weakness r/o brain mets from likely from Metastatic Breast cancer UA negative, no wbc, CXR no acute findings CT head done neurology consulted MRI brain ordered to be done with Infratentorial, supratentorial brain metastasis. Hem/On consulted, case discussed with Dr Espinoza Radiation oncology consulted Dr Rodriguez, offered WBRT+-steroid vs palliative care On Decadron 4 mg PO q6h Protonix [address] Espinoza pt has mets in spine and pelvis and multiple other bone, no need for further imaging at this point for staging. Pt may not tolerate chemotherapy , radiation therapy followed by palliative is a better option for now Per radiation oncology, the can do radiation followed by palliative or we can do palliative care without radiation PT has 6 months or less to live per Hem/Onc evaluation. palliative care consulted Family elected palliative care Pending placement for hospice, was refused by [facility] In discussion with [facility] for possible transfer Asthma Stable right now Consider Duoneb prn Polysubstance abuse Dr Farah consulted Completed methadone taper FEN Fluid: none Electrolytes: no abnormalities in last chemistry Nutrition: regular diet DVT prophylaxis Lovenox Sq Dispostion: DNR/DNI. Pending placement for hospice. Will consider SNF with palliative care if inpatient hospice is denied by all surrounding facilities Visit type - Emergency Visit Emergency Visit: Yes ED Registration Date: 01/29/16 Care time: The patient presented to the Emergency Department on the above date and was hospitalized for further evaluation of their emergent condition. - New Patient This patient is new to me today: No - Critical Care Critical Care patient: No
--- NOTE | 2016-02-10 10:43 | PN ---
Teaching Attending Note Name of Resident: Jorge Jolly ATTENDING PHYSICIAN STATEMENT I saw and evaluated the patient. I reviewed the resident's note and discussed the case with the resident. I agree with the resident's findings and plan as documented. SUBJECTIVE: Patient is lying in bed nonverbal, left eye looks red and infected which was not there before. OBJECTIVE: Vital Signs Temperature 98.2 F 02/10/16 06:00 Pulse Rate 105 H 02/10/16 06:00 Respiratory Rate 20 02/10/16 06:00 Blood Pressure 154/109 02/10/16 06:00 O2 Sat by Pulse Oximetry (%) 98 02/09/16 20:39 GENERAL: The patient is lying in bed nonverbal . HEAD: Normal with no signs of trauma. EYES: reactive , extraocular movements intact, sclera anicteric, conjunctiva positive for discharge left eye, red, ENT: Ears normal, oropharynx clear without exudates, moist mucous membranes. No teeth NECK: Trachea midline, full range of motion, supple. LUNGS: Breath sounds equal, diminshed to auscultation bilaterally, no wheezes, no crackles, no accessory muscle use. HEART: Regular rate and rhythm, S1, S2 positive, no rub or gallop. ABDOMEN: Soft, nontender, nondistended, normoactive bowel sounds, no guarding, no rebound, no hepatosplenomegaly, no masses. EXTREMITIES: 2+ pulses, warm, well-perfused, no edema. NEUROLOGICAL: nonverbal PSYCH: unable to access SKIN: Warm, dry, normal turgor, no rashes or lesions noted CBCD WBC 8.0 K/mm3 (4.0-10.0) D 02/01/16 07:00 RBC 4.85 M/mm3 (3.60-5.2) 02/01/16 07:00 Hgb 12.1 GM/dL (10.7-15.3) 02/01/16 07:00 Hct 37.1 % (32.4-45.2) 02/01/16 07:00 MCV 76.5 fl (80-96) L 02/01/16 07:00 MCHC 32.6 g/dl (32.0-36.0) 02/01/16 07:00 RDW 19.2 % (11.6-15.6) H 02/01/16 07:00 Plt Count 298 K/MM3 (134-434) 02/01/16 07:00 MPV 10.2 fl (7.5-11.1) 02/01/16 07:00 CMP Sodium 137 mmol/L (136-145) 02/01/16 07:00 Potassium 3.5 mmol/L (3.5-5.1) 02/01/16 07:00 Chloride 100 mmol/L (98-107) 02/01/16 07:00 Carbon Dioxide 25 mmol/L (21-32) 02/01/16 07:00 Anion Gap 12 (8-16) 02/01/16 07:00 BUN 9 mg/dL (7-18) 02/01/16 07:00 Creatinine 0.5 mg/dL (0.55-1.02) L 02/01/16 07:00 Creat Clearance w eGFR > 60 (>60) 01/29/16 12:51 Random Glucose 98 mg/dL (74-106) 02/01/16 07:00 Calcium 9.1 mg/dL (8.5-10.1) 02/01/16 07:00 Total Bilirubin 0.7 mg/dL (0.2-1.0) 01/29/16 12:51 AST 55 U/L (15-37) H D 01/29/16 12:51 ALT 13 U/L (12-78) 01/29/16 12:51 Alkaline Phosphatase 112 U/L (45-117) 01/29/16 12:51 Total Protein 6.4 g/dl (6.4-8.2) 01/29/16 12:51 Albumin 2.9 g/dl (3.4-5.0) L 01/29/16 12:51 Current Medications Generic Name Dose Route Start Last Admin Trade Name Freq PRN Reason Stop Dose Admin Amlodipine Besylate 10 mg 02/09/16 10:00 02/09/16 09:36 Norvasc - PO 10 mg DAILY MARGARITA Administration Artificial Tears 1 drop 02/08/16 20:27 02/09/16 17:50 Artificial Tears OU 1 drop QID PRN Administration DRY EYES Dexamethasone 4 mg 02/03/16 18:00 02/10/16 05:35 Decadron - PO 4 mg Q6HPO MARGARITA Administration Enoxaparin Sodium 40 mg 02/03/16 14:45 02/09/16 09:36 Lovenox - SQ 40 mg DAILY MARGARITA Administration Methadone HCl 15 mg 02/01/16 10:00 Dolophine - PO 02/01/16 23:59 ONCE ONE Methadone HCl 15 mg 02/02/16 10:00 Dolophine - PO 02/02/16 23:59 ONCE ONE Nystatin 500,000 units 02/09/16 00:00 02/10/16 05:35 Nystatin Oral Suspension - PO 500,000 units Q6HPO MARGARITA Administration Pantoprazole Sodium 40 mg 02/04/16 10:00 02/09/16 09:36 Protonix - PO 40 mg DAILY MARGARITA Administration Medication Instructions Recorded Pregabalin [Lyrica] 50 mg PO BID 12/12/15 Urine screen positive for opiates, amphetamines,benzos,marijuna ASSESSMENT AND PLAN: This is a 55-year-old woman with a history of stage 4 breast cancer with bone metastases, right mastectomy, opiate and alcohol abuse, hepatitis B, sickle cell trait and asthma who presented with weakness and was found to have possible brain metastases on head CT. # Acute left eye conjunctivitis: Polytrim eye drops; one drop both eyes q3h daily for 7-10 days # Acute Generalized weakness ; Head CT shows multiple hypodense areas without mass effect, MRI of brain; result reviewed: positive for brain mets infratentorial and supratentorial brain mets. Neurologist on the case CT and MRI brain show multiple infra and supra tentorial metastasis. # Stage 4 breast cancer with bone and brain metastases Palliative care consult # Asthma Stable # Opioid dependence Started on Methadone taper as per DVT Px: [facility] Palliative team on the case . [facility] declined pt due to insurance. search for other options for hospice placement Waiting for inpatient hospice
[2016-02-10] MEDS: PANTOPRAZOLE 40 MG TABLET (FP) PO SCH (10:55)
[2016-02-10] MEDS: ENOXAPARIN NA (PORCINE) 40 MG/0.4 ML DISP.SYRIN SQ SCH (10:55)
[2016-02-10] MEDS: amLODIPine BESYLATE 10 MG TABLET (FP) PO SCH (10:55)
[2016-02-10] MEDS: POLYMYXIN B SULFATE/TMP 10 ML OPHTHALMIC SOLUTION OU SCH ×3 (12:37→17:38)
[2016-02-11] MEDS ORDERED: PT OWN MED DRAWER 7, Y5N ONE ×2 (00:36→09:29)
[2016-02-11] MEDS: DEXAMETHASONE 4 MG TABLET (FP) PO SCH ×5 (00:45→23:46)
[2016-02-11] MEDS: NYSTATIN 500,000 UNITS/5 ML SUSPENSION PO SCH ×5 (00:45→23:46)
[2016-02-11] MEDS: POLYMYXIN B SULFATE/TMP 10 ML OPHTHALMIC SOLUTION OU SCH ×3 (02:26→09:31)
--- NOTE | 2016-02-11 08:07 | PN ---
Physical Exam: SUBJECTIVE: Patient seen and examined Pt is sleepy not following directions No s.s of acute distress no fever, no chills no cough OBJECTIVE: Vital Signs Period Temp Pulse Resp BP Sys/Maciel Pulse Ox Last 24 Hr 97.3 F-98.4 F 112-117 17-20 103-150/80-102 98-98 GENERAL: The patient is sleepy, in no acute distress. HEAD: Normal with no signs of trauma. Eyes: right eye with normal pupillary reflex, EOM intact. Right eye with red conjuctival, white haxy irregular cornea with porr visualtion of iris, non reactive pupil LUNGS: Breath sounds equal, diminished to auscultation bilaterally, no wheezes , no crackles, no accessory muscle use. HEART: Regular rate and rhythm, S1, S2 without murmur, rub or gallop. ABDOMEN: Soft, nontender, nondistended, normoactive bowel sounds, no guarding, no rebound, no hepatosplenomegaly, no masses. EXTREMITIES: 2+ pulses, warm, well-perfused, no edema. NEUROLOGICAL: slow speech, strength 4/5 in all ext. unable to stand and walk to due to gen weakness. No facial asymmetry PSYCH: Normal mood, flat affect. confused at times SKIN: Warm, dry, normal turgor, no rashes or lesions noted Active Medications Generic Name Dose Route Start Last Admin Trade Name Freq PRN Reason Stop Dose Admin Amlodipine Besylate 10 mg 02/09/16 10:00 02/10/16 10:55 Norvasc - PO 10 mg DAILY MARGARITA Administration Artificial Tears 1 drop 02/08/16 20:27 02/09/16 17:50 Artificial Tears OU 1 drop QID PRN Administration DRY EYES Dexamethasone 4 mg 02/03/16 18:00 02/11/16 06:16 Decadron - PO 4 mg Q6HPO MARGARITA Administration Methadone HCl 15 mg 02/01/16 10:00 Dolophine - PO 02/01/16 23:59 ONCE ONE Methadone HCl 15 mg 02/02/16 10:00 Dolophine - PO 02/02/16 23:59 ONCE ONE Nystatin 500,000 units 02/09/16 00:00 02/11/16 06:16 Nystatin Oral Suspension - PO 500,000 units Q6HPO MARGARITA Administration Pantoprazole Sodium 40 mg 02/04/16 10:00 02/10/16 10:55 Protonix - PO 40 mg DAILY MARGARITA Administration Polymyxin/Trimethoprim Sulfate 1 drop 02/10/16 12:00 02/11/16 06:17 Polytrim Opthalmic Solution - OU 1 drp [id number] MARGARITA Administration CBC, BMP 02/01/16 07:00 02/01/16 07:00 MRI Brain 02/02/16: Motion artifacts observed on several sequences. Scatter vasogenic edema is observed in the infratentorial, supratentorial brain parenchyma. No evidence of herniation. Heterogeneous enhancing masses are observed in the lateral aspect of the right cerebellum measuring 20 mm x 19 mm, 10 mm. Enhancing lesions measuring 7.0 mm x 7.5 mm is observed in the region of the left middle cerebellar peduncle. Enhancing lesions are observed in the superior aspect of the vermis some in vicinity of the aqueduct. Abnormal enhancement is seen in the interpeduncular cistern. Several enhancing lesions are noted in the mid melva Several enhancing cortical lesions at the junction of the white and pappas matter are observed in the temporal lobes. Cortical based enhancing lesion in the left cingulate gyrus. Few small enhancing lesions are noted in the bilateral frontal lobes. . Periventricular chronic microangiopathic ischemic changes. Questionable punctate foci of restricted diffusion in bilateral frontal centrum semiovale. The major caliber vascular structures of [place] and peripheral dural venous sinuses show normal flow-void signal characteristics. No abnormality seen in the pontomedullary junction region. No evidence of Chiari malformation. MRI Brain 02/02/16 Impression. Infratentorial, supratentorial brain metastasis. CT head 01/29/16: New areas of subcortical decreased density without significant mass effect. Further imaging with contrast enhanced CT or MR is suggested. CXR 01/29/16: Interval increase opacity in the left the upper lobe, suprahilar region for which correlation with CT scan of the chest is needed for better comparison to prior CT scan of the chest dated 12/13/2015 CT chest 12/13/2015 : Abnormal CT scan findings highly suspicious for left upper lobe lung mass with satellite metastatic lesions and possible nodular metastasis to the left adrenal with metastatic bone disease. Correlation with PET CT scan recommended for further evaluation. ASSESSMENT/PLAN: 55 year old female with pmh of Stage 4 breast cancer with bone metastasis, right breast mastectomy, asthma, polysubstance abuse including alcohol and opiate, Hepatitis B presented to the ED with complaint of generalized weakness, pt was found to have new areas on decreased density on head CT Generalized weakness r/o brain mets from likely from Metastatic Breast cancer UA negative, no wbc, CXR no acute findings CT head done neurology consulted MRI brain ordered to be done with Infratentorial, supratentorial brain metastasis. Hem/On consulted, case discussed with Dr Espinoza Radiation oncology consulted Dr Rodriguez, offered WBRT+-steroid vs palliative care On Decadron 4 mg PO q6h Protonix [address] Espinoza pt has mets in spine and pelvis and multiple other bone, no need for further imaging at this point for staging. Pt may not tolerate chemotherapy , radiation therapy followed by palliative is a better option for now Per radiation oncology, the can do radiation followed by palliative or we can do palliative care without radiation PT has 6 months or less to live per Hem/Onc evaluation. palliative care consulted Family elected palliative care Pending placement for hospice, was refused by [facility] In discussion with [facility] for possible transfer LEft Eye Conjunctivitis/keratitis/trauma Left eye erythema likely conjunctivitis viral vs bacterial Start Polytrim yesterday but symptoms worsened Switch to cipro oph q2h OU Dr Sandoval ophthalmology consulted Asthma Stable right now Consider Duoneb prn Polysubstance abuse Dr Farah consulted Completed methadone taper FEN Fluid: none Electrolytes: no abnormalities in last chemistry Nutrition: regular diet DVT prophylaxis Lovenox Sq Dispostion: DNR/DNI. Pending placement for hospice. Will consider SNF with palliative care if inpatient hospice is denied by all surrounding facilities Visit type - Emergency Visit Emergency Visit: Yes ED Registration Date: 01/29/16 Care time: The patient presented to the Emergency Department on the above date and was hospitalized for further evaluation of their emergent condition. - New Patient This patient is new to me today: No - Critical Care Critical Care patient: No - Discharge Referral Referred to [facility] No
[2016-02-11] MEDS: PANTOPRAZOLE 40 MG TABLET (FP) PO SCH (09:31)
[2016-02-11] MEDS: amLODIPine BESYLATE 10 MG TABLET (FP) PO SCH (09:31)
[2016-02-11] MEDS: CIPROFLOXACIN HCL 0.3% OPHTH 2.5ML BOTTLE OU SCH ×7 (10:47→23:48)
--- NOTE | 2016-02-11 19:42 | PN ---
Teaching Attending Note Name of Resident: Jorge Jolly ATTENDING PHYSICIAN STATEMENT I saw and evaluated the patient. I reviewed the resident's note and discussed the case with the resident. I agree with the resident's findings and plan as documented. SUBJECTIVE: Patient is nonverbal and does not follow a command, eye infection is worse today. OBJECTIVE: Vital Signs Temperature 98.0 F 02/11/16 13:33 Pulse Rate 106 H 02/11/16 17:33 Respiratory Rate 22 02/11/16 17:33 Blood Pressure 132/99 02/11/16 17:33 O2 Sat by Pulse Oximetry (%) 94 L 02/11/16 09:00 GENERAL: The patient is lying in bed nonverbal . HEAD: Normal with no signs of trauma. EYES: extraocular movements intact, worsening of left eye infection with possible corneal abrasions, with discharge ENT: Ears normal, oropharynx clear without exudates, moist mucous membranes. No teeth NECK: Trachea midline, full range of motion, supple. LUNGS: Breath sounds equal, diminshed to auscultation bilaterally, no wheezes, no crackles, no accessory muscle use. HEART: Regular rate and rhythm, S1, S2 positive, no rub or gallop. ABDOMEN: Soft, nontender, nondistended, normoactive bowel sounds, no guarding, no rebound, no hepatosplenomegaly, no masses. EXTREMITIES: 2+ pulses, warm, well-perfused, no edema. NEUROLOGICAL: nonverbal PSYCH: unable to access SKIN: Warm, dry, normal turgor, no rashes or lesions noted CBCD WBC 8.0 K/mm3 (4.0-10.0) D 02/01/16 07:00 RBC 4.85 M/mm3 (3.60-5.2) 02/01/16 07:00 Hgb 12.1 GM/dL (10.7-15.3) 02/01/16 07:00 Hct 37.1 % (32.4-45.2) 02/01/16 07:00 MCV 76.5 fl (80-96) L 02/01/16 07:00 MCHC 32.6 g/dl (32.0-36.0) 02/01/16 07:00 RDW 19.2 % (11.6-15.6) H 02/01/16 07:00 Plt Count 298 K/MM3 (134-434) 02/01/16 07:00 MPV 10.2 fl (7.5-11.1) 02/01/16 07:00 CMP Sodium 137 mmol/L (136-145) 02/01/16 07:00 Potassium 3.5 mmol/L (3.5-5.1) 02/01/16 07:00 Chloride 100 mmol/L (98-107) 02/01/16 07:00 Carbon Dioxide 25 mmol/L (21-32) 02/01/16 07:00 Anion Gap 12 (8-16) 02/01/16 07:00 BUN 9 mg/dL (7-18) 02/01/16 07:00 Creatinine 0.5 mg/dL (0.55-1.02) L 02/01/16 07:00 Creat Clearance w eGFR > 60 (>60) 01/29/16 12:51 Random Glucose 98 mg/dL (74-106) 02/01/16 07:00 Calcium 9.1 mg/dL (8.5-10.1) 02/01/16 07:00 Total Bilirubin 0.7 mg/dL (0.2-1.0) 01/29/16 12:51 AST 55 U/L (15-37) H D 01/29/16 12:51 ALT 13 U/L (12-78) 01/29/16 12:51 Alkaline Phosphatase 112 U/L (45-117) 01/29/16 12:51 Total Protein 6.4 g/dl (6.4-8.2) 01/29/16 12:51 Albumin 2.9 g/dl (3.4-5.0) L 01/29/16 12:51 Current Medications Generic Name Dose Route Start Last Admin Trade Name Freq PRN Reason Stop Dose Admin Amlodipine Besylate 10 mg 02/09/16 10:00 02/11/16 09:31 Norvasc - PO 10 mg DAILY MARGARITA Administration Artificial Tears 1 drop 02/08/16 20:27 02/09/16 17:50 Artificial Tears OU 1 drop QID PRN Administration DRY EYES Ciprofloxacin 1 drop 02/11/16 11:00 02/11/16 18:19 Ciloxan 0.3% Eye Drops - OU 1 drop Q2H MARGARITA Administration Dexamethasone 4 mg 02/03/16 18:00 02/11/16 17:01 Decadron - PO 4 mg Q6HPO MARGARITA Administration Methadone HCl 15 mg 02/01/16 10:00 Dolophine - PO 02/01/16 23:59 ONCE ONE Methadone HCl 15 mg 02/02/16 10:00 Dolophine - PO 02/02/16 23:59 ONCE ONE Nystatin 500,000 units 02/09/16 00:00 02/11/16 17:01 Nystatin Oral Suspension - PO 500,000 units Q6HPO MARGARITA Administration Pantoprazole Sodium 40 mg 02/04/16 10:00 02/11/16 09:31 Protonix - PO 40 mg DAILY MARGARITA Administration Medication Instructions Recorded Pregabalin [Lyrica] 50 mg PO BID 12/12/15 Urine screen positive for opiates, amphetamines,benzos,marijuna ASSESSMENT AND PLAN: This is a 55-year-old woman with a history of stage 4 breast cancer with bone metastases, right mastectomy, opiate and alcohol abuse, hepatitis B, sickle cell trait and asthma who presented with weakness and was found to have possible brain metastases on head CT. # Acute worsening of left eye infection: antibiotic changed to ciprofloxicin eye drops; Called ;[employer] discussed the case , he will see the patient tonight as per conversation. # presented with Generalized weakness now more lying in bed and does not follow command; Head CT shows multiple hypodense areas without mass effect, MRI of brain show multiple infra and supra tentorial metastasis.Neurologist on the case. # Stage 4 breast cancer with bone and brain metastases; Palliative care consult # Asthma Stable # Opioid dependence Started on Methadone taper as per DVT Px: [facility] Palliative team on the case . [facility] declined pt due to insurance. search for other options for hospice placement Waiting for inpatient hospice
[2016-02-12] MEDS: CIPROFLOXACIN HCL 0.3% OPHTH 2.5ML BOTTLE OU SCH ×10 (01:05→18:49)
[2016-02-12] MEDS ORDERED: hydrALAZINE HCL 20 MG/ML VIAL IVPUSH ONE (06:12)
[2016-02-12] MEDS ORDERED: hydrALAZINE HCL 20 MG/ML VIAL IVPB ONE (06:12)
[2016-02-12] MEDS: NYSTATIN 500,000 UNITS/5 ML SUSPENSION PO SCH ×2 (06:20→12:54)
[2016-02-12] MEDS: DEXAMETHASONE 4 MG TABLET (FP) PO SCH ×2 (07:05→12:54)
[2016-02-12] MEDS ORDERED: PT OWN MED DRAWER 7, Y5N ONE (07:52)
--- NOTE | 2016-02-12 08:10 | PN ---
Physical Exam: SUBJECTIVE: Patient seen and examined Pt is awake but not follow direction Did not speak No complaint Does not seem in pain or uncomfortable OBJECTIVE: Vital Signs Period Temp Pulse Resp BP Sys/Maciel Pulse Ox Last 24 Hr 98.0 F-98.5 F 106-126 22-26 132-149/99-116 94-94 GENERAL: The patient is sleepy, in no acute distress. HEAD: Normal with no signs of trauma. Eyes: right eye with normal pupillary reflex, EOM intact. Right eye with red conjuctival, white hazy irregular cornea with abraison, non reactive pupil LUNGS: Breath sounds equal, diminished to auscultation bilaterally, no wheezes , no crackles, no accessory muscle use. HEART: Regular rate and rhythm, S1, S2 without murmur, rub or gallop. ABDOMEN: Soft, nontender, nondistended, normoactive bowel sounds, no guarding, no rebound, no hepatosplenomegaly, no masses. EXTREMITIES: 2+ pulses, warm, well-perfused, no edema. NEUROLOGICAL: Moves all ext, strength 4/5 in all ext. unable to stand and walk to due to gen weakness. No facial asymmetry PSYCH: Normal mood, flat affect. confused at times SKIN: Warm, dry, normal turgor, no rashes or lesions noted Active Medications Generic Name Dose Route Start Last Admin Trade Name Freq PRN Reason Stop Dose Admin Amlodipine Besylate 10 mg 02/09/16 10:00 02/11/16 09:31 Norvasc - PO 10 mg DAILY MARGARITA Administration Artificial Tears 1 drop 02/08/16 20:27 02/09/16 17:50 Artificial Tears OU 1 drop QID PRN Administration DRY EYES Ciprofloxacin 1 drop 02/11/16 11:00 02/12/16 07:04 Ciloxan 0.3% Eye Drops - OU 1 drop Q2H MARGARITA Administration Dexamethasone 4 mg 02/03/16 18:00 02/12/16 07:05 Decadron - PO Not Given Q6HPO MARGARITA Methadone HCl 15 mg 02/01/16 10:00 Dolophine - PO 02/01/16 23:59 ONCE ONE Methadone HCl 15 mg 02/02/16 10:00 Dolophine - PO 02/02/16 23:59 ONCE ONE Metoprolol Tartrate 50 mg 02/12/16 10:00 Lopressor - PO BID MARGARITA Nystatin 500,000 units 02/09/16 00:00 02/12/16 06:20 Nystatin Oral Suspension - PO 500,000 units Q6HPO MARGARITA Administration Pantoprazole Sodium 40 mg 02/04/16 10:00 02/11/16 09:31 Protonix - PO 40 mg DAILY MARGARITA Administration MRI Brain 02/02/16: Motion artifacts observed on several sequences. Scatter vasogenic edema is observed in the infratentorial, supratentorial brain parenchyma. No evidence of herniation. Heterogeneous enhancing masses are observed in the lateral aspect of the right cerebellum measuring 20 mm x 19 mm, 10 mm. Enhancing lesions measuring 7.0 mm x 7.5 mm is observed in the region of the left middle cerebellar peduncle. Enhancing lesions are observed in the superior aspect of the vermis some in vicinity of the aqueduct. Abnormal enhancement is seen in the interpeduncular cistern. Several enhancing lesions are noted in the mid melva Several enhancing cortical lesions at the junction of the white and pappas matter are observed in the temporal lobes. Cortical based enhancing lesion in the left cingulate gyrus. Few small enhancing lesions are noted in the bilateral frontal lobes. . Periventricular chronic microangiopathic ischemic changes. Questionable punctate foci of restricted diffusion in bilateral frontal centrum semiovale. The major caliber vascular structures of [place] and peripheral dural venous sinuses show normal flow-void signal characteristics. No abnormality seen in the pontomedullary junction region. No evidence of Chiari malformation. MRI Brain 02/02/16 Impression. Infratentorial, supratentorial brain metastasis. CT head 01/29/16: New areas of subcortical decreased density without significant mass effect. Further imaging with contrast enhanced CT or MR is suggested. CXR 01/29/16: Interval increase opacity in the left the upper lobe, suprahilar region for which correlation with CT scan of the chest is needed for better comparison to prior CT scan of the chest dated 12/13/2015 CT chest 12/13/2015 : Abnormal CT scan findings highly suspicious for left upper lobe lung mass with satellite metastatic lesions and possible nodular metastasis to the left adrenal with metastatic bone disease. Correlation with PET CT scan recommended for further evaluation. ASSESSMENT/PLAN: 55 year old female with pmh of Stage 4 breast cancer with bone metastasis, right breast mastectomy, asthma, polysubstance abuse including alcohol and opiate, Hepatitis B presented to the ED with complaint of generalized weakness, pt was found to have new areas on decreased density on head CT Generalized weakness r/o brain mets from likely from Metastatic Breast cancer UA negative, no wbc, CXR no acute findings CT head done neurology consulted MRI brain ordered to be done with Infratentorial, supratentorial brain metastasis. Hem/On consulted, case discussed with Dr Espinoza Radiation oncology consulted Dr Rodriguez, offered WBRT+-steroid vs palliative care On Decadron 4 mg PO q6h Protonix [address] Espinoza pt has mets in spine and pelvis and multiple other bone, no need for further imaging at this point for staging. Pt may not tolerate chemotherapy , radiation therapy followed by palliative is a better option for now Per radiation oncology, the can do radiation followed by palliative or we can do palliative care without radiation PT has 6 months or less to live per Hem/Onc evaluation. palliative care consulted Family elected palliative care Pending placement for hospice, was refused by [facility] for possible transfer Considering SNF placement LEft Eye Conjunctivitis/keratitis/trauma Left eye erythema likely conjunctivitis viral vs bacterial Was Start Polytrim but symptoms worsened On Cipro oph q2h OU Add gentamycin Opht Eye Culture Dr Sandoval ophthalmology consulted ID Dr West consulted HTN Started on Lopressor 50mg BID, hold SBP < 120 and DBP< 60 and HR<60 Asthma Stable right now Consider Duoneb prn Polysubstance abuse Dr Farah consulted Completed methadone taper FEN Fluid: none Electrolytes: no abnormalities in last chemistry Nutrition: regular diet DVT prophylaxis Lovenox Sq Dispostion: DNR/DNI. Pending placement for hospice or SNF with palliative care. Visit type - Emergency Visit Emergency Visit: Yes ED Registration Date: 01/29/16 Care time: The patient presented to the Emergency Department on the above date and was hospitalized for further evaluation of their emergent condition. - New Patient This patient is new to me today: No - Critical Care Critical Care patient: No
--- NOTE | 2016-02-12 08:22 | PN ---
Teaching Attending Note Name of Resident: Jorge Jolly ATTENDING PHYSICIAN STATEMENT I saw and evaluated the patient. I reviewed the resident's note and discussed the case with the resident. I agree with the resident's findings and plan as documented. SUBJECTIVE: Patient is lying in bed ,more responsive. But unable to communicate. Worsening of left corneal abrasions . OBJECTIVE: Vital Signs Temperature 98.5 F 02/12/16 06:00 Pulse Rate 119 H 02/12/16 06:00 Respiratory Rate 22 02/11/16 21:00 Blood Pressure 143/113 02/12/16 06:00 O2 Sat by Pulse Oximetry (%) 94 L 02/11/16 21:00 GENERAL: The patient is lying in bed nonverbal . HEAD: Normal with no signs of trauma. EYES: extraocular movements are intact, worsening of left eye corneal abrasions with discharge ENT: Ears normal, oropharynx clear without exudates, moist mucous membranes. No teeth NECK: Trachea midline, full range of motion, supple. LUNGS: Breath sounds equal, diminshed to auscultation bilaterally, no wheezes, no crackles, no accessory muscle use. HEART: tachycardic with rate of 120's , S1, S2 positive, no rub or gallop. ABDOMEN: Soft, nontender, nondistended, normoactive bowel sounds, no guarding, no rebound, no hepatosplenomegaly, no masses. EXTREMITIES: 2+ pulses, warm, well-perfused, no edema. NEUROLOGICAL: nonverbal PSYCH: unable to access SKIN: Warm, dry, normal turgor, no rashes or lesions noted CBCD WBC 8.0 K/mm3 (4.0-10.0) D 02/01/16 07:00 RBC 4.85 M/mm3 (3.60-5.2) 02/01/16 07:00 Hgb 12.1 GM/dL (10.7-15.3) 02/01/16 07:00 Hct 37.1 % (32.4-45.2) 02/01/16 07:00 MCV 76.5 fl (80-96) L 02/01/16 07:00 MCHC 32.6 g/dl (32.0-36.0) 02/01/16 07:00 RDW 19.2 % (11.6-15.6) H 02/01/16 07:00 Plt Count 298 K/MM3 (134-434) 02/01/16 07:00 MPV 10.2 fl (7.5-11.1) 02/01/16 07:00 CMP Sodium 137 mmol/L (136-145) 02/01/16 07:00 Potassium 3.5 mmol/L (3.5-5.1) 02/01/16 07:00 Chloride 100 mmol/L (98-107) 02/01/16 07:00 Carbon Dioxide 25 mmol/L (21-32) 02/01/16 07:00 Anion Gap 12 (8-16) 02/01/16 07:00 BUN 9 mg/dL (7-18) 02/01/16 07:00 Creatinine 0.5 mg/dL (0.55-1.02) L 02/01/16 07:00 Creat Clearance w eGFR > 60 (>60) 01/29/16 12:51 Random Glucose 98 mg/dL (74-106) 02/01/16 07:00 Calcium 9.1 mg/dL (8.5-10.1) 02/01/16 07:00 Total Bilirubin 0.7 mg/dL (0.2-1.0) 01/29/16 12:51 AST 55 U/L (15-37) H D 01/29/16 12:51 ALT 13 U/L (12-78) 01/29/16 12:51 Alkaline Phosphatase 112 U/L (45-117) 01/29/16 12:51 Total Protein 6.4 g/dl (6.4-8.2) 01/29/16 12:51 Albumin 2.9 g/dl (3.4-5.0) L 01/29/16 12:51 Current Medications Generic Name Dose Route Start Last Admin Trade Name Freq PRN Reason Stop Dose Admin Amlodipine Besylate 10 mg 02/09/16 10:00 02/11/16 09:31 Norvasc - PO 10 mg DAILY MARGARITA Administration Artificial Tears 1 drop 02/08/16 20:27 02/09/16 17:50 Artificial Tears OU 1 drop QID PRN Administration DRY EYES Ciprofloxacin 1 drop 02/11/16 11:00 02/12/16 07:04 Ciloxan 0.3% Eye Drops - OU 1 drop Q2H MARGARITA Administration Dexamethasone 4 mg 02/03/16 18:00 02/12/16 07:05 Decadron - PO Not Given Q6HPO MARGARITA Methadone HCl 15 mg 02/01/16 10:00 Dolophine - PO 02/01/16 23:59 ONCE ONE Methadone HCl 15 mg 02/02/16 10:00 Dolophine - PO 02/02/16 23:59 ONCE ONE Metoprolol Tartrate 50 mg 02/12/16 10:00 Lopressor - PO BID MARGARITA Nystatin 500,000 units 02/09/16 00:00 02/12/16 06:20 Nystatin Oral Suspension - PO 500,000 units Q6HPO MARGARITA Administration Pantoprazole Sodium 40 mg 02/04/16 10:00 02/11/16 09:31 Protonix - PO 40 mg DAILY MARGARITA Administration Urine screen positive for opiates, amphetamines,benzos,marijuna ASSESSMENT AND PLAN: This is a 55-year-old woman with a history of stage 4 breast cancer with bone metastases, right mastectomy, opiate and alcohol abuse, hepatitis B, sickle cell trait and asthma who presented with weakness and was found to have possible brain metastases on head CT. # Acute worsening of left corneal abrasion : antibiotic changed to ciprofloxicin eye drops and added gentamicin eye drops called ; [employer] discussed the case who has seen the patient agreed with adding another eye drops . Will get ID to see the patient for possible IV antibiotic. # Patient is terminal ;presented with Generalized weakness now more lying in bed and does not follow command; Head CT shows multiple hypodense areas without mass effect, MRI of brain show multiple infra and supra tentorial metastasis.Neurologist on the case. patient was made DNR/DNI by the son, plan is comfort care , palliative care nurse is on the case . # Stage 4 breast cancer with bone and brain metastases; Palliative care consult # Asthma Stable # Opioid dependence Started on Methadone taper as per DVT Px: [facility] Palliative team on the case . [facility] declined pt due to insurance. search for other options for hospice placement Waiting for inpatient hospice
[2016-02-12] MEDS: PANTOPRAZOLE 40 MG TABLET (FP) PO SCH (09:27)
[2016-02-12] MEDS: amLODIPine BESYLATE 10 MG TABLET (FP) PO SCH (09:27)
[2016-02-12] MEDS ORDERED: METOPROLOL TARTRATE 50 MG TABLET (FP) PO SCH (10:00)
[2016-02-12] MEDS ORDERED: RAMIPRIL 2.5 MG CAPSULE (FP) PO SCH (10:00)
[2016-02-12] MEDS: GENTAMICIN SULFATE 0.3% OPHTHALMIC (EYE DROPS) 5ML BOTTLE OU SCH ×4 (11:00→18:02)
[2016-02-12] MEDS ORDERED: TUBERCULIN PPD 5 TU/0.1ML SYRINGE (IN PATIENT USE ONLY) ID ONE (11:30)
--- NOTE | 2016-02-12 13:24 | PN ---
Progress Note (short form) - Note Progress Note: ID consult dictated D/W Dr Robertson 55 year old with metastatic breast cancer, substance use admitted with worsening mental status found to have multiple brain mets dnr/dni with plans for hospice noted about 48 hours ago to have erythema/conjunctivitis of the left eye eyedrops started worsened seen by Dr Sandoval (optho)- agree with CT scan as ordered ?orbital met she is on decadron would get blood cultures, cultures of eye drainage sent would obtain HIV testing (son consents) start vanco/cefepime pending cultures in general systemic antibiotics get into the eye very poorly but would continue antibiotics pending cultures f/u optho consult primary team is agreeable to labs/cultures/antiibotics hospice is being arranged
[2016-02-12] MEDS ORDERED: CEFEPIME HCL 1 GM VIAL (RESTRICTED TO ID) IVPB SCH (13:30)
[2016-02-12 13:49] LABS: CALCIUM 9.8 mg/dL (8.5-10.1); CREATININE 1.3 mg/dL (0.55-1.02)
[2016-02-12 14:02] VITALS: PULSE 130; TEMP 98.3
[2016-02-12 14:02] LABS: MCHC 30.7 g/dl (32.0-36.0); MEAN CELL VOLUME 78.2 fl (80-96); MEAN PLT VOLUME 10.6 fl (7.5-11.1); PLATELET COUNT 322 K/MM3 (134-434); RDW 19.2 % (11.6-15.6); WHITE BLOOD COUNT 25.4 K/mm3 (4.0-10.0)
[2016-02-12 15:02] LABS: HIV 1 & 2 AB NEGATIVE; HIV 1 AGp24 NEGATIVE
[2016-02-12 15:32] VITALS: BP 158/110
[2016-02-12] MEDS ORDERED: METOPROLOL TARTRATE 50 MG TABLET (FP) PO ONE (15:36)
[2016-02-12] MEDS ORDERED: VANCOMYCIN 1 GRAM (PRE-DOCKED) 1,000 MG/250 ML BAG IVPB ONE (15:45)
[2016-02-12] MEDS ORDERED: SODIUM CHLORIDE 0.45% 1,000 ML IV SCH (15:45)
[2016-02-12] MEDS ORDERED: CEFEPIME 1 GM/100 ML BAG PRE-DOCKED IVPB SCH (15:45)
[2016-02-12] MEDS ORDERED: morphine CARPU-JECT 2 MG/1 ML DISP.SYRIN IVPUSH ONE (16:54)
[2016-02-12] MEDS ORDERED: MORPHINE 100 MG in SODIUM CHLORIDE 98 ML IVPB SCH (17:45)
--- NOTE | 2016-02-12 18:56 | CONS ---
DATE OF CONSULTATION: DATE OF DICTATION: 02/12/2016 INFECTIOUS DISEASE CONSULTATION REQUESTING PHYSICIAN: Hospitalist service, Parish Matos M.D. HISTORY OF PRESENT ILLNESS: This is a 55-year-old woman with metastatic breast cancer who is DNR/DNI, who is essentially unresponsive, awaiting placement in hospice. She has a history of substance abuse in the past and she is apparently over the course of the last 72 hours, last several days, developed worsening erythema , clouding of the whole left eye. Ophthalmology consult was called, and she was seen by ophthalmology, awaiting further evaluation by them. I am asked to see her by the hospitalist service for further assistance in her care. She is unresponsive and unable to give any history. All the history is from the chart and from talking with the primary care team. PAST MEDICAL HISTORY: Notable for stage 4 breast cancer with metastases to bones. She is status post right breast mastectomy, polysubstance use, Hepatitis B, sickle cell trait, and asthma. She has had orthopedic surgery in 2014, she has had a right breast mastectomy in the past. She also had multiple lymph node metastases in her neck and has been started on Decadron. ALLERGIES: She has no known drug allergies. MEDICATION: Include Cipro eyedrops, Lopressor, Decadron, Norvasc, artificial tears, methadone, nystatin swish and swallow, Protonix. FAMILY HISTORY: Noncontributory. SOCIAL HISTORY: She resides in the community. PHYSICAL EXAMINATION: General: Her boyfriend is feeding her some orange ice cream. She is not able to verbalize. He says she spoke to him earlier. Vital signs: Temperature 98.3, pulse 126, blood pressure 155/120, respiratory rate 22, she was saturating 94% on room air. HEENT: Normocephalic. Her left eye has complete clouding of the eye. She has got some conjunctival drainage. Heart: Tachycardic. Lungs: Diminished breath sounds at the bases. No wheezes or crackles . Abdomen: Soft. Extremities: Without edema. Neurological: She is nonverbal, and she is not following commands for me. LABORATORY DATA: Her white count is 8 from several weeks ago. Hemoglobin 12.1. IMPRESSION: In summary, this is a 55-year-old woman with metastatic breast cancer, history of substance use, admitted with worsening mental status, found to have multiple brain metastases. She is now DNR/DNI with plans for hospice. She has noted about 48 to 72 hours ago to have erythema, conjunctivitis of the left eye, eyedrops were started, and the eye has worsened. She has been seen by ophthalmology, Dr. Sandoval, and we are waiting for the followup. Would agree with CAT scan as ordered. Question of orbital metastasis. She is on Decadron. Would get blood cultures and culture of the eye drainage has been sent. Would obtain HIV testing, the son consents. She is on eyedrops. Would start vancomycin and cefepime pending the cultures. In general, systemic antibiotics get into the eye very poorly but would continue antibiotics pending cultures. Follow up with ophthalmology as needed. Primary care team is agreeable to labs, cultures, and antibiotics. Hospice is being arranged. Not really sure of the level of aggression of her care given her overall poor condition. RHODA OCHOA M.D. [id number] MTDJosephine
--- NOTE | 2016-02-12 19:30 | HOSP ---
Physical Examination Labs: Hospitalist Encounter Outcome: I was called to see the patient for unresponsiveness. On physical examination the patient didn't respond to verbal or physical stimuli. Absent heart and breath sounds. Absent peripheral pulses. Pupils are fixed and dilated. Corneal reflex was absent. The patient was pronounced at 18:55 on 02/12/16. Family was was present at bedside. Primary Physician Notified: Shira Null Visit type - Emergency Visit Emergency Visit: Yes ED Registration Date: 01/29/16 Care time: The patient presented to the Emergency Department on the above date and was hospitalized for further evaluation of their emergent condition. - New Patient This patient is new to me today: No - Critical Care Critical Care patient: No
--- NOTE | 2016-03-24 14:25 | DS ---
[id number]: PHYSICAL EXAM No response to verbal or physical stimuli. Absent heart sounds Absent breath sounds b/l. Absent peripheral pulses. Pupils are fixed and dilated. Corneal reflex was absent. No spontaneous movement LABS CBC, BMP 02/12/16 12:49 02/12/16 12:49 MRI Brain 02/02/16: Motion artifacts observed on several sequences. Scatter vasogenic edema is observed in the infratentorial, supratentorial brain parenchyma. No evidence of herniation. Heterogeneous enhancing masses are observed in the lateral aspect of the right cerebellum measuring 20 mm x 19 mm, 10 mm. Enhancing lesions measuring 7.0 mm x 7.5 mm is observed in the region of the left middle cerebellar peduncle. Enhancing lesions are observed in the superior aspect of the vermis some in vicinity of the aqueduct. Abnormal enhancement is seen in the interpeduncular cistern. Several enhancing lesions are noted in the mid melva Several enhancing cortical lesions at the junction of the white and pappas matter are observed in the temporal lobes. Cortical based enhancing lesion in the left cingulate gyrus. Few small enhancing lesions are noted in the bilateral frontal lobes. . Periventricular chronic microangiopathic ischemic changes. Questionable punctate foci of restricted diffusion in bilateral frontal centrum semiovale. The major caliber vascular structures of [place] of [place] and peripheral dural venous sinuses show normal flow-void signal characteristics. No abnormality seen in the pontomedullary junction region. No evidence of Chiari malformation. MRI Brain 02/02/16 Impression. Infratentorial, supratentorial brain metastasis. CT head 01/29/16: New areas of subcortical decreased density without significant mass effect. Further imaging with contrast enhanced CT or MR is suggested. CXR 01/29/16: Interval increase opacity in the left the upper lobe, suprahilar region for which correlation with CT scan of the chest is needed for better comparison to prior CT scan of the chest dated 12/13/2015 CT chest 12/13/2015 : Abnormal CT scan findings highly suspicious for left upper lobe lung mass with satellite metastatic lesions and possible nodular metastasis to the left adrenal with metastatic bone disease. Correlation with PET CT scan recommended for further evaluation. HOSPITAL COURSE: Date of Admission:01/29/16 55 year old female with pmh of Stage 4 breast cancer with bone metastasis, right breast mastectomy, asthma, polysubstance abuse including alcohol and opiate, Hepatitis B presented to the ED with complaint of generalized weakness, pt was found to have new areas on decreased density on head CT. Generalized weakness rT brain mets from likely from Metastatic Breast cancer UA negative, no wbc, CXR no acute findings, CT head done, neurology consulted. MRI brain ordered to be done with Infratentorial, supratentorial brain metastasis. Radiation oncology consulted Dr Rodriguez, offered WBRT+-steroid vs palliative care. Pt was placed On Decadron 4 mg PO q6h. Per Dr Espinoza pt has mets in spine and pelvis and multiple other bone, no need for further imaging at this point for staging. Pt may not tolerate chemotherapy, radiation therapy followed by palliative is a better option for now. Per radiation oncology, the can do radiation followed by palliative or we can do palliative care without radiation. PT has 6 months or less to live per Hem/Onc evaluation. palliative care consulted. Family elected palliative care, Pt was made DNR/DNI. Placement was attempted. But pt prior to transfer. LEft Eye Conjunctivitis/keratitis/trauma Pt developed a Left eye erythema likely conjunctivitis viral vs bacterial. Was Start Polytrim but symptoms worsened. Was On Cipro oph q2h OU, we added gentamycin Opht. Eye Culture was done and result was pending. Dr Sandoval ophthalmology was consulted. ID Dr West consulted and patient was placed on IV antibiotics. Pt before conjunctivitis/keratis resolved. Date of Discharge: 03/24/16 Minutes to complete discharge: 40 <Jorge Jolly - Last Filed: 03/24/16 14:31> Physical Exam: SUBJECTIVE: Patient seen and examined OBJECTIVE: PHYSICAL EXAM GENERAL: The patient is awake, alert, and fully oriented, in no acute distress. HEAD: Normal with no signs of trauma. EYES: PERRL, extraocular movements intact, sclera anicteric, conjunctiva clear. ENT: Ears normal, nares patent, oropharynx clear without exudates, moist mucous membranes. NECK: Trachea midline, full range of motion, supple. LUNGS: Breath sounds equal, clear to auscultation bilaterally, no wheezes, no crackles, no accessory muscle use. HEART: Regular rate and rhythm, S1, S2 without murmur, rub or gallop. ABDOMEN: Soft, nontender, nondistended, normoactive bowel sounds, no guarding, no rebound, no hepatosplenomegaly, no masses. EXTREMITIES: 2+ pulses, warm, well-perfused, no edema. NEUROLOGICAL: Cranial nerves II through XII grossly intact. Normal speech, gait not observed. PSYCH: Normal mood, normal affect. SKIN: Warm, dry, normal turgor, no rashes or lesions noted. LABS HOSPITAL COURSE: Date of Admission:01/29/16 Date of Discharge: 03/26/16 Addendum: Patient was started on Polytrim eye drop antibiotics, [employer]ber Management Technician and discussed with was consulted and switched to Aminoglycoside antibiotic, and had no further suggestions. KENYA khalil consulted , where patient was started on IV antibiotic. Patient due to metastasis to her brain. Her ophthalmological issues had no correlation with her Demise. <Parish Matos - Last Filed: 03/26/16 08:31> Discharge Summary Reason For Visit: BREAST CARCINOMA METASTASIZED TO BONE - Home Medications Comprehensive Discharge Medication List: Ambulatory Orders Pregabalin [Lyrica] 50 mg PO BID 12/12/15 <Jorge Jolly - Last Filed: 03/24/16 14:31> - Home Medications Comprehensive Discharge Medication List: Ambulatory Orders Pregabalin [Lyrica] 50 mg PO BID 12/12/15 <Parish Matos - Last Filed: 03/26/16 08:31> - Instructions Referrals: Alo Espinoza MD [Primary Care Provider] - Disposition: This patient is new to me today: No Emergency Visit: Yes ED Registration Date: 01/29/16 Care time: The patient presented to the Emergency Department on the above date and was hospitalized for further evaluation of their emergent condition. Critical Care patient: No - Discharge Referral Referred to [facility] Med P.C[facility] No <Jorge Jolly - Last Filed: 03/24/16 14:31>
== END 2016-02-12 21:50 | disposition expired | DRG 41 ==
LOC: JER 10:49 → JERBED 17:28 → UNDOADMIN 17:28 → JERBED 19:02 → J6S 19:02 → JERBED 20:05 → J6S 02-02 15:23
PROVIDERS: ADMIT Internal Medicine; ATTEND Internal Medicine
DX: C79.31 Secondary malignant neoplasm of brain (principal); G93.6 Cerebral edema; C79.51 Secondary malignant neoplasm of bone; B19.10 Unspecified viral hepatitis B without hepatic coma; F14.20 Cocaine dependence, uncomplicated; F11.20 Opioid dependence, uncomplicated; C50.911 Malignant neoplasm of unspecified site of right female breast; D57.3 Sickle-cell trait; J45.909 Unspecified asthma, uncomplicated; F10.10 Alcohol abuse, uncomplicated; F17.210 Nicotine dependence, cigarettes, uncomplicated; Z66 Do not resuscitate; F12.10 Cannabis abuse, uncomplicated; H10.89 Other conjunctivitis
CPT/HCPCS: 36415; 70450-TC; 70552-TC; 71010-TC; 80048; 80053; 81003; 82140; 85025; 85027; 87040; 87070; 87205; 87389; 93005; 93010; 99284-25; G0479